=== PATIENT | male | born 1945 | race Hispanic/Latino ===

== ENCOUNTER 2019-09-23 10:02 | Inpatient (IN) | payer OTHER, MEDICARE ==
[~2019-09-23] VITALS: Ht 162.6 cm; Wt 75.7 kg
[2019-09-23 10:32] LABS: BASOPHILS % (AUTO) 0.2 % (0.0-5.0); HEMATOCRIT 35.4 % (42-54); LYMPHOCYTES % (AUTO) 10.5 % (21.0-51.0); MEAN CORPUSCULAR HEMOGLOBIN 28.2 pg (27.0-33.0); MEAN CORPUSCULAR HGB CONC 33.3 g/dL (32.0-36.0); MEAN CORPUSCULAR VOLUME 84.7 fL (79-99); MONOCYTES % (AUTO) 7.9 % (3.0-13.0); NEUTROPHILS % (AUTO) 80.2 % (40.0-77.0); PLATELET COUNT (AUTO) 241 K/uL (130-400); RED BLOOD CELL COUNT(AUTO) 4.18 MIL/uL (4.50-6.20); RED CELL DISTRIBUTION WIDTH 12.6 % (11.0-15.5); WHITE BLOOD COUNT (AUTO) 9.7 K/uL (4.8-10.8)
[2019-09-23 11:02] LABS: CREATININE 2.2 mg/dL (0.5-1.5); POTASSIUM 5.1 mmol/L (3.5-5.1)
[2019-09-23] MEDS ORDERED: ZOSYN 3.375GM+NS 50ML 50 ML IV ONE (11:12)
[2019-09-23] MEDS ORDERED: VANCOMYCIN 1GM+NS 250ML 250 ML IV SCH (11:14)
[2019-09-23 11:54] LABS: CREATINE KINASE, TOTAL 147 U/L (21-232); MYOGLOBIN 132 ng/mL (10-92); TROPONIN I < 0.04 ng/mL (0.00-0.06)
[2019-09-23 11:59] LABS: APPEARANCE,URINE CLEAR (CLEAR); BILIRUBIN,URINE NEGATIVE (NEGATIVE); COLOR,URINE YELLOW (YELLOW); GLUCOSE, URINE (UA) 100 mg/dL (NEGATIVE); KETONES,URINE NEGATIVE (NEGATIVE); LEUKOCYTE ESTERASE ,URINE NEGATIVE (NEGATIVE); NITRATE,URINE NEGATIVE (NEGATIVE); OCCULT BLOOD,URINE TRACE-LYSED (NEGATIVE); PH,URINE 5.5 (5.0-8.0); PROTEIN,URINE NEGATIVE (NEGATIVE); UROBILINOGEN,URINE 0.2 mg/dL (0.2-1.0)
[2019-09-23 12:04] LABS: INR 1.09 (0.85-1.15); PARTIAL THROMBOPLASTIN TIME 32.1 SEC (26.3-35.5); PROTHROMBIN TIME 11.7 SEC (9.6-11.6)
[2019-09-23 12:18] LABS: BACTERIA,URINE Rare /HPF (None Seen); RBC,URINE 0-1 /HPF (0-1); SQUAMOUS EPITHELIAL CELL,UR Rare /HPF (0-2)
[2019-09-23] MEDS: SODIUM CHLORIDE 0.9% 1000ML 1,000 ML IV SCH ×2 (14:16→18:05)
[2019-09-23] MEDS ORDERED: ONDANSETRON HCL 4 MG/2 ML VIAL IV PRN (14:30)
[2019-09-23] MEDS ORDERED: POTASSIUM CHLORIDE 20MEQ/100ML 100 ML IV PRN (14:30)
[2019-09-23] MEDS ORDERED: DIPHENHYDRAMINE HCL 25 MG CAPSULE PO PRN (14:30)
[2019-09-23] MEDS ORDERED: MAG HYDROX/AL HYDROX/SIMETH ES 30 ML SUSP UDCUP PO PRN (14:30)
[2019-09-23] MEDS ORDERED: ACETAMINOPHEN 325 MG TAB PO PRN (14:30)
[2019-09-23] MEDS ORDERED: GUAIFENESIN-DM 200/20 MG 10 ML PO PRN (14:30)
[2019-09-23] MEDS ORDERED: LACTULOSE 20 GM/30 ML UDCUP PO PRN (14:30)
[2019-09-23] MEDS ORDERED: MAGNESIUM 2GM PREMIX 50ML 50 ML IV PRN (14:30)
[2019-09-23] MEDS ORDERED: ZOLPIDEM TARTRATE 5 MG TAB PO PRN (14:30)
[2019-09-23] MEDS ORDERED: NITROGLYCERIN 0.4 MG SL TAB SL PRN (14:30)
[2019-09-23] MEDS ORDERED: HYDRALAZINE HCL 20 MG/ML VIAL IV PRN (14:30)
[2019-09-23] MEDS ORDERED: LIDOCAINE HCL-MPF 1% 2ML VIAL IV PRN (14:30)
[2019-09-23] MEDS ORDERED: ACETAMINOPHEN-CODEINE 300/30MG TAB ONE (15:21)
[2019-09-23 16:00] VITALS: BP 106/58
[2019-09-23] MEDS: INSULIN HUMULIN R 100 UNIT/ML 3ML SQ SCH ×2 (16:30→20:48)
[2019-09-23] MEDS ORDERED: TAMS-1 PO (17:06)
[2019-09-23] MEDS ORDERED: ATOR40TA69 PO (17:06)
[2019-09-23] MEDS ORDERED: CILO100T PO (17:06)
[2019-09-23] MEDS ORDERED: PANT40TA54 PO (17:06)
[2019-09-23] MEDS ORDERED: INVOK100TB PO (17:15)
[2019-09-23] MEDS ORDERED: MONT10TA26 PO (17:15)
[2019-09-23] MEDS ORDERED: BISA5TAB12 PO (17:15)
[2019-09-23] MEDS ORDERED: LOSA1TAB37 PO (17:15)
[2019-09-23] MEDS ORDERED: OMEP40CA13 PO (17:15)
[2019-09-23] MEDS ORDERED: CLIN150C10 PO (17:15)
[2019-09-23] MEDS ORDERED: CIPR500S5 PO (17:15)
[2019-09-23] MEDS: CEFEPIME HCL 2 GM VIAL IVP SCH (18:05)
[2019-09-23 20:03] VITALS: BP 151/62
[2019-09-23] MEDS: CILOSTAZOL 100 MG TAB PO SCH (20:50)
[2019-09-23] MEDS: FAMOTIDINE 20MG TAB 20 MG TAB PO SCH (20:50)
--- NOTE | 2019-09-23 20:56 | NUR ---
PT EDUCATED SEVERAL TIMES THAT HE CANNOT GET UP BY HIMSELF AND IS BEST IF HE DOES NOT PUT WEIGHT ON HIS RIGHT FOOT NOR GET UP AT THIS TIME SINCE DR. COVARRUBIAS DID DRESSING CHANGE AND DUE TO THE VERY HIGH FALL RISK , AND PATIENT IS PENDING SURGERY PT STATES "OK" BUT STILL TRIES TO DO WHAT HE WANTS AND GET UP, CALL LIGHT AT BED SIDE WITH TEACH BACK SUCCESSFULLY BED IS AN OLD BED, SO DOES NOT HAVE AN ALARM , WILL GET A BED ALARM THAT COMES SEPARATELY
[2019-09-23 21:34] VITALS: BP 151/62
[2019-09-23 23:28] VITALS: BP_SYST 139; BP_SYST 156; BP_DIAS 68; BP_DIAS 86
[2019-09-24] VITALS (21 sets, daily range): BP systolic 128–179; BP diastolic 50–101
[2019-09-24] MEDS: ACETAMINOPHEN-CODEINE 300/30MG TAB PO PRN (00:42)
--- NOTE | 2019-09-24 01:37 | NUR ---
pt states he already received the tetanus shot in [place]
[2019-09-24] MEDS: CEFEPIME HCL 2 GM VIAL IVP SCH ×2 (03:07→14:51)
--- NOTE | 2019-09-24 03:15 | NUR ---
pt refused iv antibiotic and iv fluids refusal form signed , in the chart
[2019-09-24 05:10] LABS: BASOPHILS % (AUTO) 0.3 % (0.0-5.0); EOSINOPHILS % (AUTO) 0.2 % (0.0-8.0); HEMATOCRIT 32.7 % (42-54); LYMPHOCYTES % (AUTO) 5.8 % (21.0-51.0); MEAN CORPUSCULAR HEMOGLOBIN 27.6 pg (27.0-33.0); MEAN CORPUSCULAR HGB CONC 32.1 g/dL (32.0-36.0); MEAN CORPUSCULAR VOLUME 85.8 fL (79-99); NEUTROPHILS % (AUTO) 87.3 % (40.0-77.0); PLATELET COUNT (AUTO) 231 K/uL (130-400); RED BLOOD CELL COUNT(AUTO) 3.81 MIL/uL (4.50-6.20); RED CELL DISTRIBUTION WIDTH 12.9 % (11.0-15.5)
[2019-09-24 05:37] LABS: ALBUMIN 2.6 g/dL (3.5-5.0); BILIRUBIN,TOTAL 0.4 mg/dL (0.2-1.0); CREATININE 1.9 mg/dL (0.5-1.5); MAGNESIUM 2.2 mg/dL (1.80-2.40); POTASSIUM 4.9 mmol/L (3.5-5.1)
[2019-09-24 06:02] LABS: CRP QUANTITATIVE 173.5 mg/L (0.00-9.0)
[2019-09-24 06:10] LABS: ERYTHROCYTE SEDIMENTATION RATE 70 MM/HR (0-20)
[2019-09-24] MEDS: INSULIN HUMULIN R 100 UNIT/ML 3ML SQ SCH ×4 (07:30→20:56)
[2019-09-24] MEDS: ENOXAPARIN SODIUM 30 MG/0.3 ML SQ SCH (08:31)
[2019-09-24] MEDS: TAMSULOSIN HCL 0.4 MG CAP.ER.24H PO SCH (09:00)
[2019-09-24] MEDS: CILOSTAZOL 100 MG TAB PO SCH ×2 (09:00→19:58)
[2019-09-24] MEDS: PANTOPRAZOLE SODIUM 40 MG TABLET.DR PO SCH (09:00)
[2019-09-24] MEDS: FAMOTIDINE 20MG TAB 20 MG TAB PO SCH ×2 (09:00→19:58)
[2019-09-24] MEDS: ATORVASTATIN CALCIUM 40 MG TABLET PO SCH (09:00)
[2019-09-24] MEDS: SODIUM CHLORIDE 0.9% 1000ML 1,000 ML IV SCH ×4 (09:37→21:26)
[2019-09-24 11:56] LABS: PROTEIN,URINE RANDOM 23.8 mg/dL (0-11.9)
[2019-09-24] MEDS ORDERED: DiphenhydrAMINE HCL 50 MG/ML VIAL IVP PRN (13:30)
[2019-09-24] MEDS ORDERED: LIDOCAINE HCL 1% 20 ML VIAL ONE (13:42)
[2019-09-24] MEDS ORDERED: BUPIVACAINE/PF 0.5% 30ML VIAL ONE (13:42)
[2019-09-24] MEDS ORDERED: PROPOFOL 10 MG/ML 20ML VIAL IV ONE (13:42)
[2019-09-24] MEDS ORDERED: LIDOCAINE PF 2% 5ML ABBOJECT ONE (13:42)
[2019-09-24] MEDS ORDERED: PHARMACY COMMUNICATION MISC SCH (13:45)
[2019-09-24 18:22] LABS: INR 1.14 (0.85-1.15); PARTIAL THROMBOPLASTIN TIME 31.5 SEC (26.3-35.5); PROTHROMBIN TIME 12.2 SEC (9.6-11.6)
[2019-09-25] VITALS (13 sets, daily range): BP systolic 103–183; BP diastolic 52–81
[2019-09-25] MEDS: CEFEPIME HCL 2 GM VIAL IVP SCH ×2 (03:27→15:20)
[2019-09-25] MEDS: SODIUM CHLORIDE 0.9% 1000ML 1,000 ML IV SCH ×6 (04:57→23:22)
[2019-09-25 06:03] LABS: HEMATOCRIT 34.4 % (42-54); MEAN CORPUSCULAR HEMOGLOBIN 28.4 pg (27.0-33.0); MEAN CORPUSCULAR HGB CONC 33.1 g/dL (32.0-36.0); MEAN CORPUSCULAR VOLUME 85.6 fL (79-99); PLATELET COUNT (AUTO) 306 K/uL (130-400); RED BLOOD CELL COUNT(AUTO) 4.02 MIL/uL (4.50-6.20); RED CELL DISTRIBUTION WIDTH 12.8 % (11.0-15.5); WHITE BLOOD COUNT (AUTO) 8.2 K/uL (4.8-10.8)
[2019-09-25 06:23] LABS: CREATININE 1.4 mg/dL (0.5-1.5); PHOSPHORUS 2.3 mg/dL (2.5-4.9); POTASSIUM 4.8 mmol/L (3.5-5.1)
[2019-09-25] MEDS: INSULIN HUMULIN R 100 UNIT/ML 3ML SQ SCH ×4 (06:35→20:50)
[2019-09-25 06:36] LABS: BAND NEUTROPHILS % (MANUAL) 1 % (0-2); BASOPHILS % (MANUAL) 1 % (0-2); LYMPHOCYTES % (MANUAL) 10 % (22-44); MAN.DIFF COMMENT-IMPRESSION MANUAL DIFFERENTIAL; MONOCYTES % (MANUAL) 4 % (2-9); PLATELET MORPHOLOGY COMMENT ADEQUATE; SEGMENTED NEUTROPHILS % 84 % (40-70)
[2019-09-25] MEDS: ENOXAPARIN SODIUM 30 MG/0.3 ML SQ SCH (07:39)
[2019-09-25] MEDS: CILOSTAZOL 100 MG TAB PO SCH ×2 (07:39→20:09)
[2019-09-25] MEDS: FAMOTIDINE 20MG TAB 20 MG TAB PO SCH ×2 (07:39→20:09)
[2019-09-25] MEDS: TAMSULOSIN HCL 0.4 MG CAP.ER.24H PO SCH ×2 (07:39→09:23)
[2019-09-25] MEDS ORDERED: COMPOUND IV MISC 1 EACH IVSOLN MISC PRN (08:30)
[2019-09-25] MEDS ORDERED: HEPARIN SODIUM 1000UNIT/ML 10ML VIAL ONE (09:22)
[2019-09-25] MEDS ORDERED: NITROGLYCERIN 2 MG/VIAL VIAL IV ONE (09:22)
[2019-09-25] MEDS: METOPROLOL TARTRATE 25 MG TAB PO SCH ×2 (09:23→20:09)
[2019-09-25] MEDS ORDERED: FENTANYL CITRATE PF 50 MCG/1 ML 2ML VIAL ONE (09:23)
[2019-09-25] MEDS ORDERED: IODIXANOL 320 MG/ML 100 ML VIAL ONE (09:23)
[2019-09-25] MEDS: ATORVASTATIN CALCIUM 40 MG TABLET PO SCH (09:23)
[2019-09-25] MEDS: PANTOPRAZOLE SODIUM 40 MG TABLET.DR PO SCH (09:23)
[2019-09-25] MEDS ORDERED: LIDOCAINE HCL 2% 20ML ONE (09:23)
[2019-09-25] MEDS ORDERED: MIDAZOLAM HCL 1 MG/ML 2ML VIAL ONE (09:23)
[2019-09-25] MEDS: IRON SUCROSE COMPLEX 100 MG in SODIUM CHLORIDE 0.9% 50 ML IV SCH (09:24)
[2019-09-25] MEDS ORDERED: TICAGRELOR 90 MG TABLET ONE (11:57)
[2019-09-25] MEDS ORDERED: ASPIRIN 325MG EC TAB 325 MG TABLET.DR PO ONE (11:57)
[2019-09-25] MEDS ORDERED: SODIUM CHLORIDE 0.9% 1000ML 1,000 ML IV SCH (12:03)
--- NOTE | 2019-09-25 12:44 | NUR ---
RECEIVED PATIENT AT 1235. INCISION TO LEFT GROIN WITH DRESSING CLEAN AND DRY, NO SIGNS OF BLEEDING OR SWELLING,LOWER EXTREMITIES WARM ,CONT WITH DRESSING AND SARBJIT WRAP TO RT FOOT TO ANKLE AREA. . INSTRUCTED PATIENT ON BEDREST AND IMPORTANCE TO NOT BEND LOWER EXTREMITY. 1:1 SITTER AT BEDSIDE
--- NOTE | 2019-09-25 13:13 | NUR ---
MAGDA PLAN PATIENT DOWN FOR PROCEDURE. ANOOP WILL CONTINUE TO FOLLOW FOR IA. Addendum: 09/25/19 at 1314 by MARY BOB RN CM Amended: Links added.
[2019-09-25] MEDS: ACETAMINOPHEN-CODEINE 300/30MG TAB PO PRN (15:28)
--- NOTE | 2019-09-25 16:23 | NUR ---
[id number] received telephone consent from Paige for IM Letter.I faxed IM Letter to [phone] and placed in chart under consent tab.
[2019-09-25] MEDS ORDERED: TICAGRELOR 90 MG TABLET PO SCH (23:30)
[2019-09-26] VITALS: BP 127/89
[2019-09-26] MEDS: DiphenhydrAMINE HCL 50 MG/ML VIAL IV PRN (02:28)
[2019-09-26] MEDS: CEFEPIME HCL 2 GM VIAL IVP SCH ×2 (02:28→15:32)
[2019-09-26 03:47] VITALS: BP 170/65
[2019-09-26 04:05] LABS: HEMATOCRIT 32.7 % (42-54); MEAN CORPUSCULAR HGB CONC 32.7 g/dL (32.0-36.0); MEAN CORPUSCULAR VOLUME 85.6 fL (79-99); RED BLOOD CELL COUNT(AUTO) 3.82 MIL/uL (4.50-6.20); WHITE BLOOD COUNT (AUTO) 7.9 K/uL (4.8-10.8)
[2019-09-26 04:25] LABS: CREATININE 1.5 mg/dL (0.5-1.5); POTASSIUM 4.3 mmol/L (3.5-5.1)
[2019-09-26] MEDS: INSULIN HUMULIN R 100 UNIT/ML 3ML SQ SCH ×4 (05:21→20:37)
[2019-09-26] MEDS: SODIUM CHLORIDE 0.9% 1000ML 1,000 ML IV SCH ×2 (05:34→09:36)
[2019-09-26 08:00] VITALS: BP 157/76
[2019-09-26] MEDS: METOPROLOL TARTRATE 25 MG TAB PO SCH (09:00)
[2019-09-26] MEDS: ACETAMINOPHEN-CODEINE 300/30MG TAB PO PRN (09:31)
[2019-09-26] MEDS: CLOPIDOGREL BISULFATE 75 MG TAB PO SCH (09:31)
[2019-09-26] MEDS: PANTOPRAZOLE SODIUM 40 MG TABLET.DR PO SCH (09:31)
[2019-09-26] MEDS: CILOSTAZOL 100 MG TAB PO SCH ×2 (09:31→20:32)
[2019-09-26] MEDS: ATORVASTATIN CALCIUM 40 MG TABLET PO SCH (09:32)
[2019-09-26] MEDS: FAMOTIDINE 20MG TAB 20 MG TAB PO SCH ×2 (09:32→20:31)
[2019-09-26] MEDS: ASPIRIN 81MG TAB.CHEW PO SCH (09:32)
[2019-09-26] MEDS: TAMSULOSIN HCL 0.4 MG CAP.ER.24H PO SCH (09:32)
[2019-09-26] MEDS ORDERED: METOPROLOL TARTRATE 25 MG TAB ONE (09:35)
[2019-09-26] MEDS: IRON SUCROSE COMPLEX 100 MG in SODIUM CHLORIDE 0.9% 50 ML IV SCH (09:38)
--- NOTE | 2019-09-26 11:39 | NUR ---
DC PLAN VISITED WITH PATIENT. PATIENT LIVES WITH SPOUSE. INDEPENDENT ABLE TO PERFORM ADL'S. PATIENT HAS NO SERVICES OR DME'S. AVAILABLE WALKER AND WHEEL CHAIR. FEELS SAFE TO RETURN HOME. PER NURSE PATIENT CONFUSED REASON FOR ONE TO ONE. EXPRESSED CONCERN REGARDING VALIDITY OF INFORMATION. CALLED SPOUSE. SAID YES WALKER AND WHEEL CHAIR ARE HERS. NO PROVIDER FOR PATIENT. WANTS HIM TO COME HOME AND WANTS TO KNOW WHEN. LET HER KNOW THAT WILL BE UP TO MD. SAID SHE WOULD LIKE A CALL FROM MD. LET NURSE AND CHRISTY BARRIENTOS FOR [facility] KNOW OF SPOUSE REQUEST. Addendum: 09/26/19 at 1142 by MARY BOB RN CM Amended: Links added.
--- NOTE | 2019-09-26 11:45 | NUR ---
IN&OUT CATHETER D/T BLADDER LLHH=932 PT C/O DYSURIA AND URINARY RETENTION. OBSERVED FREQUENCY. BLADDER PALPATED AND DISTENDED. POST YNTH=900WB BLADDER SCAN SHOWED = 865 VOLUME. REPORTED TO JEFFREY HARRISON. NEW ORDERS RECEIVED. EXPLAINED PROCEDURE FOR IN&OUT CATH. PT WAS EPISODES OF CONFUSION; VERBALIZED UNDERSTANDING. IN&OUT CATH DONE UTILIZING STERILE TECHNIQUE. 1200ML URINE OUTPUT. PT VOICES INCREASED AFTER PROCEDURE COMPLETE. WILL CONTINUE TO MONITOR.
[2019-09-26 12:00] VITALS: BP 157/80
[2019-09-26 12:54] LABS: APPEARANCE,URINE Clear (CLEAR); BILIRUBIN,URINE Negative (NEGATIVE); COLOR,URINE Yellow (YELLOW); GLUCOSE, URINE (UA) >=1000 mg/dL (NEGATIVE); KETONES,URINE Trace mg/dL (NEGATIVE); LEUKOCYTE ESTERASE ,URINE Negative (NEGATIVE); NITRATE,URINE Negative (NEGATIVE); OCCULT BLOOD,URINE Negative (NEGATIVE); PROTEIN,URINE Negative (NEGATIVE); UROBILINOGEN,URINE 0.2 mg/dL (0.2-1.0)
[2019-09-26 13:13] LABS: BACTERIA,URINE Rare /HPF (None Seen); RBC,URINE 0-1 /HPF (0-1); SQUAMOUS EPITHELIAL CELL,UR Rare /HPF (0-2); WBC,URINE 0-1 /HPF (0-1)
--- NOTE | 2019-09-26 14:44 | NUR ---
CHRISTY ATTEMPTED TO CALL PT'S TO UPDATE W PT'S STATUS HOWEVER, THERE WAS NO ANSWER. WILL CONTINUE TO FOLLOW.
[2019-09-26 16:00] VITALS: BP 148/75
--- NOTE | 2019-09-26 17:26 | NUR ---
NH=904 AFTER MEAL NO INSULIN COVERAGE DUE TO BS DONE POST MEAL. WILL CONTINUE TO MONITOR.
[2019-09-26 20:00] VITALS: BP 158/73
[2019-09-26] MEDS: METOPROLOL TARTRATE 50 MG TAB PO SCH (20:32)
[2019-09-26] MEDS: MORPHINE SULFATE 2 MG/ML 1ML SYG IV PRN (20:55)
[2019-09-27] VITALS (7 sets, daily range): BP systolic 127–156; BP diastolic 53–89
[2019-09-27] MEDS: CEFEPIME HCL 2 GM VIAL IVP SCH ×2 (03:17→16:06)
[2019-09-27] MEDS: DiphenhydrAMINE HCL 50 MG/ML VIAL IV PRN (03:17)
[2019-09-27] MEDS: MORPHINE SULFATE 2 MG/ML 1ML SYG IV PRN (03:18)
[2019-09-27 06:09] LABS: HEMATOCRIT 28.1 % (42-54); MEAN CORPUSCULAR HEMOGLOBIN 27.2 pg (27.0-33.0); MEAN CORPUSCULAR VOLUME 84.9 fL (79-99); RED BLOOD CELL COUNT(AUTO) 3.31 MIL/uL (4.50-6.20); RED CELL DISTRIBUTION WIDTH 12.9 % (11.0-15.5); WHITE BLOOD COUNT (AUTO) 8.5 K/uL (4.8-10.8)
[2019-09-27] MEDS: INSULIN HUMULIN R 100 UNIT/ML 3ML SQ SCH ×4 (06:11→20:34)
[2019-09-27 06:25] LABS: CREATININE 1.7 mg/dL (0.5-1.5); POTASSIUM 4.4 mmol/L (3.5-5.1)
[2019-09-27] MEDS: FAMOTIDINE 20MG TAB 20 MG TAB PO SCH ×2 (08:59→20:32)
[2019-09-27] MEDS: IRON SUCROSE COMPLEX 100 MG in SODIUM CHLORIDE 0.9% 50 ML IV SCH (08:59)
[2019-09-27] MEDS: PANTOPRAZOLE SODIUM 40 MG TABLET.DR PO SCH (08:59)
[2019-09-27] MEDS: ATORVASTATIN CALCIUM 40 MG TABLET PO SCH (08:59)
[2019-09-27] MEDS: ASPIRIN 81MG TAB.CHEW PO SCH (08:59)
[2019-09-27] MEDS: TAMSULOSIN HCL 0.4 MG CAP.ER.24H PO SCH (09:00)
[2019-09-27] MEDS: METOPROLOL TARTRATE 50 MG TAB PO SCH ×2 (09:00→20:32)
[2019-09-27] MEDS: CLOPIDOGREL BISULFATE 75 MG TAB PO SCH (09:00)
[2019-09-27] MEDS: CILOSTAZOL 100 MG TAB PO SCH ×2 (09:00→20:32)
[2019-09-27] MEDS ORDERED: DIPH,PERTUSS(ACELL),TET VAC/PF 0.5 ML VIAL IM SCH (14:15)
[2019-09-27] MEDS: ZOLPIDEM TARTRATE 5 MG TAB PO SCH (20:33)
[2019-09-27] MEDS ORDERED: ZOLPIDEM TARTRATE 5 MG TAB PO SCH (21:00)
[2019-09-28] MEDS: CEFEPIME HCL 2 GM VIAL IVP SCH ×2 (03:22→16:16)
[2019-09-28 04:00] VITALS: BP 128/61
[2019-09-28] MEDS: INSULIN HUMULIN R 100 UNIT/ML 3ML SQ SCH ×4 (05:37→20:34)
[2019-09-28 08:06] VITALS: BP 103/62
[2019-09-28] MEDS: FAMOTIDINE 20MG TAB 20 MG TAB PO SCH ×2 (09:00→20:26)
[2019-09-28] MEDS: IRON SUCROSE COMPLEX 100 MG in SODIUM CHLORIDE 0.9% 50 ML IV SCH (09:00)
[2019-09-28] MEDS: ATORVASTATIN CALCIUM 40 MG TABLET PO SCH (09:00)
[2019-09-28] MEDS: CLOPIDOGREL BISULFATE 75 MG TAB PO SCH (09:00)
[2019-09-28] MEDS: PANTOPRAZOLE SODIUM 40 MG TABLET.DR PO SCH (09:01)
[2019-09-28] MEDS: METOPROLOL TARTRATE 50 MG TAB PO SCH ×2 (09:01→20:26)
[2019-09-28] MEDS: ASPIRIN 81MG TAB.CHEW PO SCH (09:01)
[2019-09-28] MEDS: TAMSULOSIN HCL 0.4 MG CAP.ER.24H PO SCH (09:01)
[2019-09-28] MEDS: CILOSTAZOL 100 MG TAB PO SCH ×2 (09:01→20:26)
[2019-09-28 12:30] VITALS: BP 134/72
--- NOTE | 2019-09-28 12:44 | NUR ---
DCP/HH Order received for HH services upon discharge. Spoke w pt's spouse and obtained consent for [facility]. Referral faxed to [facility]. Received call back from Anjelica(nurse production ski repairer). She mentions that they are not able to provide services until Mon or and is asking if. Md will ok start of care to be 6/ or if family can be taught dressing changes until HH sees pt. Discussed above w primary nurse Brenda. She mentions that pts spouse was in room earlier when Dr. Gil was changing dressing and does not believe pts spouse can manage the dressing change. Primary nurse to inform attending.
[2019-09-28] MEDS ORDERED: TAMS-1 PO (13:50)
[2019-09-28 16:14] VITALS: BP 150/69
[2019-09-28] MEDS: ACETAMINOPHEN 325 MG TAB PO PRN (18:16)
[2019-09-28 19:47] VITALS: BP 170/94
[2019-09-28] MEDS: ZOLPIDEM TARTRATE 5 MG TAB PO SCH (20:26)
[2019-09-28 23:58] VITALS: BP 128/61
[2019-09-29] MEDS: CEFEPIME HCL 2 GM VIAL IVP SCH ×2 (02:49→15:24)
[2019-09-29 03:54] VITALS: BP 169/79
[2019-09-29] MEDS: INSULIN HUMULIN R 100 UNIT/ML 3ML SQ SCH ×4 (05:35→20:32)
[2019-09-29 07:53] LABS: HEMATOCRIT 29.9 % (42-54); MEAN CORPUSCULAR HGB CONC 33.1 g/dL (32.0-36.0); MEAN CORPUSCULAR VOLUME 84.7 fL (79-99); RED BLOOD CELL COUNT(AUTO) 3.53 MIL/uL (4.50-6.20)
[2019-09-29 08:00] VITALS: BP 164/80
[2019-09-29 08:07] LABS: CREATININE 1.5 mg/dL (0.5-1.5); POTASSIUM 4.2 mmol/L (3.5-5.1)
[2019-09-29] MEDS: METOPROLOL TARTRATE 50 MG TAB PO SCH ×2 (08:34→20:14)
[2019-09-29] MEDS: CILOSTAZOL 100 MG TAB PO SCH ×2 (08:34→20:14)
[2019-09-29] MEDS: ASPIRIN 81MG TAB.CHEW PO SCH (08:34)
[2019-09-29] MEDS: PANTOPRAZOLE SODIUM 40 MG TABLET.DR PO SCH (08:34)
[2019-09-29] MEDS: FAMOTIDINE 20MG TAB 20 MG TAB PO SCH ×2 (08:34→20:14)
[2019-09-29] MEDS: CLOPIDOGREL BISULFATE 75 MG TAB PO SCH (08:34)
[2019-09-29] MEDS: IRON SUCROSE COMPLEX 100 MG in SODIUM CHLORIDE 0.9% 50 ML IV SCH (08:34)
[2019-09-29] MEDS: ATORVASTATIN CALCIUM 40 MG TABLET PO SCH (08:34)
[2019-09-29] MEDS: TAMSULOSIN HCL 0.4 MG CAP.ER.24H PO SCH (08:35)
[2019-09-29 11:00] VITALS: BP 182/78
[2019-09-29] MEDS ORDERED: DEXTROSE 50%-WATER 50 ML DISP.SYRIN IV PRN (11:15)
[2019-09-29] MEDS ORDERED: GLUCAGON 1MG KIT 1 MG ML IM PRN (11:15)
[2019-09-29 16:00] VITALS: BP 145/93
[2019-09-29 19:44] VITALS: BP 145/65
[2019-09-29] MEDS: ACETAMINOPHEN-CODEINE 300/30MG TAB PO PRN (20:15)
[2019-09-29] MEDS ORDERED: INSULIN GLARGINE 100 UNITS/ML 10 ML VIAL SQ SCH (21:00)
[2019-09-29] MEDS: ZOLPIDEM TARTRATE 5 MG TAB PO SCH (21:11)
[2019-09-29 23:27] VITALS: BP 138/74
[2019-09-30 03:03] VITALS: BP 141/73
[2019-09-30] MEDS: CEFEPIME HCL 2 GM VIAL IVP SCH (03:29)
[2019-09-30] MEDS: ACETAMINOPHEN 325 MG TAB PO PRN (03:46)
[2019-09-30 05:15] LABS: MEAN CORPUSCULAR HEMOGLOBIN 28.2 pg (27.0-33.0); MEAN CORPUSCULAR HGB CONC 33.1 g/dL (32.0-36.0); RED BLOOD CELL COUNT(AUTO) 3.41 MIL/uL (4.50-6.20); RED CELL DISTRIBUTION WIDTH 13.1 % (11.0-15.5); WHITE BLOOD COUNT (AUTO) 7.7 K/uL (4.8-10.8)
[2019-09-30 05:22] LABS: CREATININE 1.6 mg/dL (0.5-1.5); POTASSIUM 3.9 mmol/L (3.5-5.1)
[2019-09-30] MEDS: INSULIN HUMULIN R 100 UNIT/ML 3ML SQ SCH ×2 (05:34→11:59)
[2019-09-30 08:31] VITALS: BP 146/74
[2019-09-30] MEDS: PANTOPRAZOLE SODIUM 40 MG TABLET.DR PO SCH (09:39)
[2019-09-30] MEDS: ASPIRIN 81MG TAB.CHEW PO SCH (09:39)
[2019-09-30] MEDS: FAMOTIDINE 20MG TAB 20 MG TAB PO SCH (09:39)
[2019-09-30] MEDS: ATORVASTATIN CALCIUM 40 MG TABLET PO SCH (09:40)
[2019-09-30] MEDS: METOPROLOL TARTRATE 50 MG TAB PO SCH (09:40)
[2019-09-30] MEDS: CLOPIDOGREL BISULFATE 75 MG TAB PO SCH (09:40)
[2019-09-30] MEDS: TAMSULOSIN HCL 0.4 MG CAP.ER.24H PO SCH (09:41)
[2019-09-30] MEDS: CILOSTAZOL 100 MG TAB PO SCH (09:41)
[2019-09-30] MEDS: IRON SUCROSE COMPLEX 100 MG in SODIUM CHLORIDE 0.9% 50 ML IV SCH (09:46)
[2019-09-30 11:37] VITALS: BP 169/83
--- NOTE | 2019-09-30 13:13 | NUR ---
DC PLAN CALLED THIS MORNING ASKING REGARDING HOME HEALTH. EXPLAINED INFO HAD BEEN SENT TO [facility] BUT THAT WEEKEND CM WAS TOLD THEY DID NOT HAVE STAFF TILL MON OR TUE FOR NEW PATIENT. NEEDED TO WAIT FOR ACCEPTANCE. CALLED [facility] THIS MORNING. SAID THEY HAD NOT RECEIVED PACKET. FAXED AND EMAILED PACKET INCLUDING CONFIRMATION FROM THIS WEEKEND THAT IT WENT THROUGH. CALLED BACK IN SAID THEY RECEIVED AND WOULD HAVE NURSE AVAILABLE FOR TOMORROW. LET NURSE KNOW. CALLED SPOUSE BACK AND TOLD HER PATIENT ACCEPTED TO [facility] [place] TODAY. NURSE NEEDS TO GET ORDERS AND MAKE PACKET. Addendum: 09/30/19 at 1318 by MARY BOB RN CM Amended: Links added.
--- NOTE | 2019-09-30 13:28 | NUR ---
D/C REPORT CALLED TO ELLY MIXON AT [facility]; I HAVE GIVEN PT AND HIS D/C INSTRUCTIONS ON AFTER CARE FOR A TOE AMPUTATON INCLUDING WOUND CARE, HEEL WALKING, POST OP SHOE, ANTIBIOTIC PERSCRIPTIONS, F/U APPOINTMENTS AND SIGNS AND SYMPTOMS TO REPORT TO MD SUCH INFECTION; IV ACCESS AND TELE BOX REMOVED. PT AND STATED UNDERSTANDING OF ALL INSTRUCTIONS.
[2019-10-26] MEDS ORDERED: MELO-106 PO (00:25)
[2019-10-26] MEDS ORDERED: ASPI-556 PO (00:25)
[2019-10-26] MEDS ORDERED: CLOP75TA14 PO (00:25)
[2019-10-26] MEDS ORDERED: TRAM50TA4 PO (00:25)
== END 2019-09-30 14:03 | disposition home health service (06) | DRG 240 ==
LOC: EDH 10:02 → EDHIP 14:16 → OBSVTOIN 14:16 → 3AH 16:06 → 3DH 19:38
PROVIDERS: ADMIT Internal Medicine Pulmonary Disease; ATTEND Internal Medicine Pulmonary Disease
PROC: 0SBM0ZZ Excision of Right Metatarsal-Phalangeal Joint, Open Approach (ICD-10-PCS; 2019-09-23)
PROC: 0Y6M0ZC Detachment at Right Foot, Partial 3rd Ray, Open Approach (ICD-10-PCS; 2019-09-24)
PROC: 047V3ZZ Dilation of Right Foot Artery, Percutaneous Approach (ICD-10-PCS; principal; 2019-09-25)
PROC: B41D1ZZ Fluoroscopy of Aorta and Bilateral Lower Extremity Arteries using Low Osmolar Contrast (ICD-10-PCS; 2019-09-25)
PROC: B41F1ZZ Fluoroscopy of Right Lower Extremity Arteries using Low Osmolar Contrast (ICD-10-PCS; 2019-09-25)
DX: E11.52 Type 2 diabetes mellitus with diabetic peripheral angiopathy with gangrene (principal); E87.1 Hypo-osmolality and hyponatremia; N17.9 Acute kidney failure, unspecified; L03.115 Cellulitis of right lower limb; I70.92 Chronic total occlusion of artery of the extremities; M86.8X7 Other osteomyelitis, ankle and foot; I96 Gangrene, not elsewhere classified; S91.331A Puncture wound without foreign body, right foot, initial encounter; E11.40 Type 2 diabetes mellitus with diabetic neuropathy, unspecified; E86.1 Hypovolemia; N18.9 Chronic kidney disease, unspecified; E11.22 Type 2 diabetes mellitus with diabetic chronic kidney disease; E11.621 Type 2 diabetes mellitus with foot ulcer; D64.9 Anemia, unspecified; L03.032 Cellulitis of left toe; E11.65 Type 2 diabetes mellitus with hyperglycemia; E11.69 Type 2 diabetes mellitus with other specified complication; E66.9 Obesity, unspecified; Z68.28 Body mass index [BMI] 28.0-28.9, adult; E78.00 Pure hypercholesterolemia, unspecified; E78.5 Hyperlipidemia, unspecified; I12.9 Hypertensive chronic kidney disease with stage 1 through stage 4 chronic kidney disease, or unspecified chronic kidney disease; I25.10 Atherosclerotic heart disease of native coronary artery without angina pectoris; I70.209 Unspecified atherosclerosis of native arteries of extremities, unspecified extremity; L97.519 Non-pressure chronic ulcer of other part of right foot with unspecified severity; Y93.89 Activity, other specified; Y92.89 Other specified places as the place of occurrence of the external cause; Y99.8 Other external cause status; Z79.02 Long term (current) use of antithrombotics/antiplatelets; Z79.4 Long term (current) use of insulin; Z83.3 Family history of diabetes mellitus
CPT/HCPCS: 36415; 37228; 71045; 73630; 73718; 75710; 75716; 76770; 80048; 80053; 81001; 82550; 82570; 82948; 83540; 83550; 83605; 83735; 83874; 84100; 84145; 84156; 84165; 84484; 85025; 85027; 85347; 85610; 85651; 85730; 86140; 87040; 87070; 87076; 87088; 87205; 90715; 93005; 93306; 93356; 93925; 93970; 97039; 99156; 99157; A4344; C1725; C1760; C1769; C1894; G0378; J0360; J0692; J1200; J1644; J1756; J1815; J2001; J2250; J2543; J2704; J3010; J3490; J7030; Q9967

== ENCOUNTER 2019-10-05 13:55 | Inpatient (IN) | payer OTHER, MEDICARE ==
[~2019-10-05] VITALS: Ht 162.6 cm; Wt 75.7 kg
[~2019-10-05 13:55] MED LIST: ATOR40TA69 PO; BISA5TAB12 PO; CILO100T PO; CIPR500S5 PO; CLIN150C10 PO; INVOK100TB PO; LOSA1TAB37 PO; MONT10TA26 PO; OMEP40CA13 PO; PANT40TA54 PO; TAMS-1 PO
[2019-10-05] MEDS ORDERED: DiphenhydrAMINE HCL 50 MG/ML VIAL IV PRN (16:30)
[2019-10-05] MEDS ORDERED: ZOLPIDEM TARTRATE 5 MG TAB PO PRN (16:30)
[2019-10-05] MEDS ORDERED: NITROGLYCERIN 0.4 MG SL TAB SL PRN (16:30)
[2019-10-05] MEDS ORDERED: LIDOCAINE HCL-MPF 1% 2ML VIAL IV PRN (16:30)
[2019-10-05] MEDS ORDERED: LACTULOSE 20 GM/30 ML UDCUP PO PRN (16:30)
[2019-10-05] MEDS ORDERED: POTASSIUM CHLORIDE 20 MEQ ERTAB PO PRN (16:30)
[2019-10-05] MEDS ORDERED: MAGNESIUM 2GM PREMIX 50ML 50 ML IV PRN (16:30)
[2019-10-05] MEDS ORDERED: ONDANSETRON HCL 4 MG/2 ML VIAL IV PRN (16:30)
[2019-10-05] MEDS ORDERED: POTASSIUM CHLORIDE 20MEQ/100ML 100 ML IV PRN (16:30)
[2019-10-05] MEDS ORDERED: GUAIFENESIN-DM 200/20 MG 10 ML PO PRN (16:30)
[2019-10-05] MEDS ORDERED: POTASSIUM CHLORIDE 10% ELIXIR 20 MEQ/15 ML UDCUP PO PRN (16:30)
[2019-10-05] MEDS ORDERED: MORPHINE SULFATE 2 MG/ML 1ML SYG IV PRN (16:30)
[2019-10-05] MEDS ORDERED: DIPHENHYDRAMINE HCL 25 MG CAPSULE PO PRN (16:30)
[2019-10-05] MEDS ORDERED: CLINDAMYCIN 600 MG/D5% WATER 50 ML IV ONE (18:42)
[2019-10-05 19:14] LABS: INR 1.03 (0.85-1.15); PARTIAL THROMBOPLASTIN TIME 28.4 SEC (26.3-35.5); PROTHROMBIN TIME 11.1 SEC (9.6-11.6)
[2019-10-05 19:17] LABS: BASOPHILS % (AUTO) 0.4 % (0.0-5.0); HEMATOCRIT 36.9 % (42-54); LYMPHOCYTES % (AUTO) 19.4 % (21.0-51.0); MEAN CORPUSCULAR HEMOGLOBIN 27.9 pg (27.0-33.0); MEAN CORPUSCULAR VOLUME 87.2 fL (79-99); NEUTROPHILS % (AUTO) 72.6 % (40.0-77.0); PLATELET COUNT (AUTO) 261 K/uL (130-400); RED BLOOD CELL COUNT(AUTO) 4.23 MIL/uL (4.50-6.20); RED CELL DISTRIBUTION WIDTH 13.6 % (11.0-15.5); WHITE BLOOD COUNT (AUTO) 7.1 K/uL (4.8-10.8)
[2019-10-05 19:22] LABS: CREATININE 1.7 mg/dL (0.5-1.5); POTASSIUM 4.9 mmol/L (3.5-5.1)
[2019-10-05 19:28] LABS: ALBUMIN 2.9 g/dL (3.5-5.0); BILIRUBIN,TOTAL 0.3 mg/dL (0.2-1.0); TOTAL PROTEIN, SERUM 7.5 g/dL (6.0-8.3)
[2019-10-05 20:50] VITALS: BP 162/81
[2019-10-05] MEDS: HEPARIN SODIUM 5000UNIT/ML 1ML VIAL SQ SCH (21:00)
[2019-10-05] MEDS: INSULIN HUMULIN R 100 UNIT/ML 3ML SQ SCH (21:00)
[2019-10-06] VITALS: BP 141/70
[2019-10-06] MEDS ORDERED: ISOS30TA11 PO (02:01)
[2019-10-06] MEDS ORDERED: ONDA-104 PO (02:01)
[2019-10-06] MEDS ORDERED: CEFU500T67 PO (02:01)
[2019-10-06] MEDS ORDERED: ACET1TAB25 PO (02:01)
[2019-10-06] MEDS ORDERED: DOCU100C33 PO (02:01)
[2019-10-06] MEDS ORDERED: METO-391 PO (02:01)
[2019-10-06] MEDS ORDERED: LEVO500T89 PO (02:01)
[2019-10-06] MEDS: CLINDAMYCIN 600 MG/D5% WATER 50 ML IV SCH ×3 (03:40→16:23)
[2019-10-06] MEDS ORDERED: SODIUM CHLORIDE 0.9% 250 ML IV ONE (03:42)
[2019-10-06 03:55] VITALS: BP 155/79
[2019-10-06 05:25] LABS: BASOPHILS % (AUTO) 0.5 % (0.0-5.0); EOSINOPHILS % (AUTO) 2.3 % (0.0-8.0); HEMATOCRIT 34.2 % (42-54); LYMPHOCYTES % (AUTO) 18.8 % (21.0-51.0); MEAN CORPUSCULAR HEMOGLOBIN 27.5 pg (27.0-33.0); MEAN CORPUSCULAR HGB CONC 32.2 g/dL (32.0-36.0); MEAN CORPUSCULAR VOLUME 85.5 fL (79-99); MONOCYTES % (AUTO) 7.5 % (3.0-13.0); NEUTROPHILS % (AUTO) 70.4 % (40.0-77.0); PLATELET COUNT (AUTO) 240 K/uL (130-400); RED CELL DISTRIBUTION WIDTH 13.5 % (11.0-15.5); WHITE BLOOD COUNT (AUTO) 6.2 K/uL (4.8-10.8)
[2019-10-06 05:29] LABS: HEMOGLOBIN A1C 8.6 % (4.0-6.0)
[2019-10-06 05:33] LABS: ALBUMIN 2.6 g/dL (3.5-5.0); BILIRUBIN,TOTAL 0.4 mg/dL (0.2-1.0); CREATININE 1.5 mg/dL (0.5-1.5); MAGNESIUM 1.6 mg/dL (1.80-2.40); POTASSIUM 4.6 mmol/L (3.5-5.1)
[2019-10-06] MEDS: INSULIN HUMULIN R 100 UNIT/ML 3ML SQ SCH ×4 (06:48→20:45)
[2019-10-06 08:00] VITALS: BP 145/77
[2019-10-06] MEDS: FAMOTIDINE 20MG TAB 20 MG TAB PO SCH (08:35)
[2019-10-06] MEDS: HEPARIN SODIUM 5000UNIT/ML 1ML VIAL SQ SCH ×2 (08:42→20:55)
[2019-10-06 11:00] VITALS: BP 139/65
--- NOTE | 2019-10-06 15:06 | NUR ---
INITIAL SW met with patient. Patient lives with spouse, Paige Loera, [phone]. He has [facility] that come daily to do wound care on left foot. No PHC. Patient able to complete ADL's independently but at times needs help due to wound on foot. Patient also drives. PCP is Dr. Sana Mccoy. Pharmacy is [facility] located on [address] [place] [address]. DCP is home. Addendum: 10/06/19 at 1509 by TERESA CORTES SS Amended: Links added. Addendum: 10/06/19 at 1801 by TERESA CORTES SS DME: [facility] wheel walker
[2019-10-06 16:00] VITALS: BP 123/90
[2019-10-06] MEDS ORDERED: DOCUSATE SODIUM 100 MG CAP PO PRN (19:00)
[2019-10-06 20:00] VITALS: BP 131/65
[2019-10-06] MEDS: CILOSTAZOL 100 MG TAB PO SCH (20:47)
[2019-10-06] MEDS: CEFEPIME HCL 2 GM VIAL IVP SCH (20:55)
[2019-10-07] VITALS (7 sets, daily range): BP systolic 112–142; BP diastolic 53–74
[2019-10-07 06:10] LABS: CREATININE 1.6 mg/dL (0.5-1.5); CRP QUANTITATIVE 12.9 mg/L (0.00-9.0); POTASSIUM 4.7 mmol/L (3.5-5.1)
[2019-10-07] MEDS: INSULIN HUMULIN R 100 UNIT/ML 3ML SQ SCH ×4 (06:12→21:03)
[2019-10-07] MEDS: CEFEPIME HCL 2 GM VIAL IVP SCH ×2 (08:24→20:54)
[2019-10-07] MEDS: ATORVASTATIN CALCIUM 40 MG TABLET PO SCH (08:25)
[2019-10-07] MEDS: FAMOTIDINE 20MG TAB 20 MG TAB PO SCH (08:25)
[2019-10-07] MEDS: TAMSULOSIN HCL 0.4 MG CAP.ER.24H PO SCH (08:25)
[2019-10-07] MEDS: CILOSTAZOL 100 MG TAB PO SCH ×2 (08:26→20:54)
[2019-10-07] MEDS: HEPARIN SODIUM 5000UNIT/ML 1ML VIAL SQ SCH ×2 (08:39→21:09)
--- NOTE | 2019-10-07 11:28 | NUR ---
DR. FARLEY ASSITANT AWARE OF CASE RE; POSS. ARTERIAL BYPASS TO IMPROVE BLOOD FLOW. STATES WILL SEE PT TODAY.
--- NOTE | 2019-10-07 15:18 | NUR ---
DR. FARLEY IN PATIENT'S ROOM POSSIBLE PROCEDURE TOMORROW. STATES WILL CALL BACK LATER TONIGHT OR IN AM FOR ORDERS.
[2019-10-07] MEDS: ACETAMINOPHEN-CODEINE 300/30MG TAB PO PRN (18:44)
[2019-10-08 03:40] VITALS: BP 130/56
[2019-10-08 05:57] LABS: MEAN CORPUSCULAR HEMOGLOBIN 27.2 pg (27.0-33.0); MEAN CORPUSCULAR HGB CONC 31.8 g/dL (32.0-36.0); MEAN CORPUSCULAR VOLUME 85.6 fL (79-99); RED BLOOD CELL COUNT(AUTO) 3.97 MIL/uL (4.50-6.20); RED CELL DISTRIBUTION WIDTH 13.5 % (11.0-15.5); WHITE BLOOD COUNT (AUTO) 5.5 K/uL (4.8-10.8)
[2019-10-08 06:17] LABS: CREATININE 2.3 mg/dL (0.5-1.5); POTASSIUM 4.9 mmol/L (3.5-5.1)
[2019-10-08] MEDS: INSULIN HUMULIN R 100 UNIT/ML 3ML SQ SCH ×4 (07:22→20:28)
[2019-10-08 07:30] VITALS: BP 156/72
[2019-10-08] MEDS: CILOSTAZOL 100 MG TAB PO SCH ×2 (08:44→20:21)
[2019-10-08] MEDS: ATORVASTATIN CALCIUM 40 MG TABLET PO SCH (08:44)
[2019-10-08] MEDS: FAMOTIDINE 20MG TAB 20 MG TAB PO SCH (08:44)
[2019-10-08] MEDS: CEFEPIME HCL 2 GM VIAL IVP SCH ×2 (08:44→20:21)
[2019-10-08] MEDS: TAMSULOSIN HCL 0.4 MG CAP.ER.24H PO SCH (08:44)
[2019-10-08] MEDS: HEPARIN SODIUM 5000UNIT/ML 1ML VIAL SQ SCH ×2 (08:44→20:28)
[2019-10-08] MEDS: ACETAMINOPHEN-CODEINE 300/30MG TAB PO PRN ×2 (08:47→15:45)
[2019-10-08 11:00] VITALS: BP 116/58
--- NOTE | 2019-10-08 14:30 | NUR ---
CHART REVIEWED, AWAITING ORDER FROM DR. FARLEY? CONSULT YESTERDAY, NO ORDERS YET. KATIA CONTINUE TO FOLLOW, DC EXPECTED TO BE TO HOME W CURRENT HOME HEALTH Addendum: 10/08/19 at 1431 by NBA COTTO RN CM Amended: Links added.
[2019-10-08 16:52] VITALS: BP 119/53
--- NOTE | 2019-10-08 18:35 | NUR ---
MARCIA SPOKE WITH MARY MAYFIELD RN REGARDING SURGERY FOR PATIENT TOMORROW. MARY KENNEDY, WILL BE IN TO SEE PATIENT CLOSE TO 10A.M. TOMORROW MORNING. ORAL KENNEDY NOTIFIED PT AND HIS . PTS SAID SHE WOULD BE IN AT 9:00 A.M. Addendum: 10/08/19 at 1837 by BRANDEE ULLOA RN THEY WILL POST ORDERS AT THE TIME.
[2019-10-08 19:00] VITALS: BP 127/56
--- NOTE | 2019-10-08 20:30 | NUR ---
MEDS SHIFT ASSESSMENT DONE, PLEASE REFER TO CHART. DUE MEDS ADMINISTERED, TOLERATED WELL. INSTRUCTED PT TO BE NPO POST MN FOR SX. PT VERBALIZES UNDERSTANDING. KEPT RESTED AND COMFORTABLE IN BED. Addendum: 10/09/19 at 0222 by ELTICIA BOJORQUEZ RN RN Amended: Links added.
--- NOTE | 2019-10-08 21:32 | NUR ---
ORDERS TURNTABLE ENGINEER NOTED NEW NEW ORDERS PLACED BY DR FARLEY. SX ORDERS FOR TOMORROW. PCP MADE AWARE OF PREP NEEDED FOR PT.
--- NOTE | 2019-10-08 22:13 | NUR ---
FAXED FAXED ORDER RECEIVED FOR SX TO RESOURCE NURSE AND CONFIRMED SX SCHEDULE IN AM.
[2019-10-08 23:00] VITALS: BP 148/61
--- NOTE | 2019-10-09 00:45 | NUR ---
BATHE PCP IN AND CLIPPED AND BATHE PT WITH HIBICLENS. PT TOLERATED ACTIVITY WELL. KEPT NPO.
[2019-10-09 03:00] VITALS: BP 103/64
--- NOTE | 2019-10-09 04:29 | NUR ---
BATHE PT BRUSHED HIS TEETH AND REMOVED HIS PARTIAL DENTURES. SECOND BATH OF HIBICLENS DONE BY PCP. PT TOLERATED ACTIVITY WELL. KEPT NPO. KEPT COMFORTABLE IN BED.
[2019-10-09 05:15] LABS: BASOPHILS % (AUTO) 0.6 % (0.0-5.0); HEMATOCRIT 32.8 % (42-54); LYMPHOCYTES % (AUTO) 20.8 % (21.0-51.0); MEAN CORPUSCULAR HEMOGLOBIN 28.1 pg (27.0-33.0); MEAN CORPUSCULAR HGB CONC 33.2 g/dL (32.0-36.0); MEAN CORPUSCULAR VOLUME 84.5 fL (79-99); MONOCYTES % (AUTO) 7.3 % (3.0-13.0); NEUTROPHILS % (AUTO) 68.9 % (40.0-77.0); PLATELET COUNT (AUTO) 183 K/uL (130-400); RED BLOOD CELL COUNT(AUTO) 3.88 MIL/uL (4.50-6.20); RED CELL DISTRIBUTION WIDTH 13.4 % (11.0-15.5); WHITE BLOOD COUNT (AUTO) 4.9 K/uL (4.8-10.8)
[2019-10-09 05:24] LABS: INR 1.02 (0.85-1.15); PARTIAL THROMBOPLASTIN TIME 30.9 SEC (26.3-35.5); POTASSIUM 5.1 mmol/L (3.5-5.1)
--- NOTE | 2019-10-09 05:25 | NUR ---
CONSENT ORAL FRANCO, ASKED TO GET CONSENT FOR PROCEDURE IN [place]. PT VERBALIZES UNDERSTANDING OF PROCEDURE AND CONSENT SIGNED, WITNESSED BY ORAL FRANCO. FORM PLACED IN CHART.
[2019-10-09] MEDS: INSULIN HUMULIN R 100 UNIT/ML 3ML SQ SCH ×4 (06:08→21:40)
[2019-10-09 07:37] VITALS: BP 138/69
[2019-10-09] MEDS: TAMSULOSIN HCL 0.4 MG CAP.ER.24H PO SCH (07:41)
[2019-10-09] MEDS: FAMOTIDINE 20MG TAB 20 MG TAB PO SCH (07:42)
[2019-10-09] MEDS: HEPARIN SODIUM 5000UNIT/ML 1ML VIAL SQ SCH (07:42)
[2019-10-09] MEDS: ATORVASTATIN CALCIUM 40 MG TABLET PO SCH (07:42)
[2019-10-09] MEDS: CILOSTAZOL 100 MG TAB PO SCH ×2 (08:40→21:39)
[2019-10-09] MEDS: CEFEPIME HCL 2 GM VIAL IVP SCH ×2 (08:41→21:39)
[2019-10-09 11:00] VITALS: BP 124/64
[2019-10-09 15:26] VITALS: BP 162/69
[2019-10-09 20:46] VITALS: BP 121/76
[2019-10-09 21:01] VITALS: BP 152/70
[2019-10-09] MEDS: MAG HYDROX/AL HYDROX/SIMETH ES 30 ML SUSP UDCUP PO PRN (21:50)
[2019-10-10 00:30] VITALS: BP 132/63
--- NOTE | 2019-10-10 04:10 | NUR ---
PATIENT UPDATE Pt transferred from 302 to 413 as per order. Pt's sx rescheduled for today 10/09 for rt fem tib bypass by Dr. Spangler. Was kept npo post mn, no chest pain, no shortness of breath. No complaints voiced out, nsr in the 70's .
[2019-10-10 04:20] VITALS: BP 125/69
[2019-10-10] MEDS: INSULIN HUMULIN R 100 UNIT/ML 3ML SQ SCH ×4 (07:30→21:36)
[2019-10-10 08:00] VITALS: BP 160/79
[2019-10-10] MEDS: HEPARIN SODIUM 5000UNIT/ML 1ML VIAL SQ SCH ×2 (08:06→20:41)
[2019-10-10] MEDS: CEFEPIME HCL 2 GM VIAL IVP SCH ×2 (08:47→20:36)
[2019-10-10] MEDS: CILOSTAZOL 100 MG TAB PO SCH ×2 (09:00→20:37)
[2019-10-10] MEDS: ATORVASTATIN CALCIUM 40 MG TABLET PO SCH (09:00)
[2019-10-10] MEDS: FAMOTIDINE 20MG TAB 20 MG TAB PO SCH (10:03)
[2019-10-10] MEDS: TAMSULOSIN HCL 0.4 MG CAP.ER.24H PO SCH (10:04)
[2019-10-10 11:48] VITALS: BP 158/78
[2019-10-10 16:00] VITALS: BP 140/67
[2019-10-10 20:00] VITALS: BP 155/66
[2019-10-10] MEDS: MAG HYDROX/AL HYDROX/SIMETH ES 30 ML SUSP UDCUP PO PRN (20:37)
[2019-10-10] MEDS ORDERED: ACETAMINOPHEN-CODEINE 300/30MG TAB ONE (21:43)
[2019-10-10] MEDS: ACETAMINOPHEN-CODEINE 300/30MG TAB PO PRN (21:47)
[2019-10-11] VITALS (43 sets, daily range): BP systolic 107–178; BP diastolic 55–103
[2019-10-11 04:26] LABS: HEMATOCRIT 32.4 % (42-54); MEAN CORPUSCULAR HEMOGLOBIN 27.3 pg (27.0-33.0); MEAN CORPUSCULAR HGB CONC 31.8 g/dL (32.0-36.0); MEAN CORPUSCULAR VOLUME 85.9 fL (79-99); RED BLOOD CELL COUNT(AUTO) 3.77 MIL/uL (4.50-6.20); RED CELL DISTRIBUTION WIDTH 13.5 % (11.0-15.5); WHITE BLOOD COUNT (AUTO) 4.7 K/uL (4.8-10.8)
[2019-10-11 04:47] LABS: CREATININE 1.9 mg/dL (0.5-1.5); POTASSIUM 5.1 mmol/L (3.5-5.1)
[2019-10-11 04:52] LABS: INR 1.06 (0.85-1.15); PARTIAL THROMBOPLASTIN TIME 27.4 SEC (26.3-35.5); PROTHROMBIN TIME 11.4 SEC (9.6-11.6)
[2019-10-11] MEDS: INSULIN HUMULIN R 100 UNIT/ML 3ML SQ SCH ×4 (06:54→21:21)
[2019-10-11] MEDS: ATORVASTATIN CALCIUM 40 MG TABLET PO SCH (07:51)
[2019-10-11] MEDS: CILOSTAZOL 100 MG TAB PO SCH ×2 (07:52→20:31)
[2019-10-11] MEDS: TAMSULOSIN HCL 0.4 MG CAP.ER.24H PO SCH (07:52)
[2019-10-11] MEDS: FAMOTIDINE 20MG TAB 20 MG TAB PO SCH (07:52)
[2019-10-11] MEDS: HEPARIN SODIUM 5000UNIT/ML 1ML VIAL SQ SCH ×2 (09:00→21:19)
[2019-10-11] MEDS: CEFEPIME HCL 2 GM VIAL IVP SCH ×2 (09:15→20:31)
--- NOTE | 2019-10-11 09:51 | NUR ---
TO OR VIA BED ACCOMPANIED BY Catherine GAGNON RN.
[2019-10-11] MEDS ORDERED: SODIUM CHLORIDE 0.9% 1000ML 1,000 ML IV ONE (10:10)
[2019-10-11] MEDS ORDERED: CEFAZOLIN SODIUM 1 GM VIAL ONE (10:18)
--- NOTE | 2019-10-11 10:25 | NUR ---
OR PT TAKEN TO OR VIA BED IN NO DITRESS. RT FOOT PODUS SHOE GIVEN TO JOSE D DRYWALL HANGER TO RETURN TO PT ONCE IN RECOVERY
[2019-10-11] MEDS ORDERED: ONDANSETRON HCL 4 MG/2 ML VIAL ONE (10:27)
[2019-10-11] MEDS ORDERED: GLYCOPYRROLATE 1 MG/5 ML SYRINGE ONE (10:27)
[2019-10-11] MEDS ORDERED: FENTANYL CITRATE PF 50 MCG/1 ML 2ML VIAL ONE (10:27)
[2019-10-11] MEDS ORDERED: DEXAMETHASONE SOD PHOSPHATE 10MG/ML 1ML VIAL ONE (10:27)
[2019-10-11] MEDS ORDERED: LIDOCAINE PF 2% 5ML ABBOJECT ONE ×2 (10:27→12:35)
[2019-10-11] MEDS ORDERED: NEOSTIGMINE 5MG/5ML SYR IV ONE (10:28)
[2019-10-11] MEDS ORDERED: PROPOFOL 10 MG/ML 20ML VIAL IV ONE (10:28)
[2019-10-11] MEDS ORDERED: ROCURONIUM 10MG/1ML SYR 10 MG/ML ML ONE (10:28)
[2019-10-11] MEDS: CEFAZOLIN SODIUM 1 GM VIAL IVP PRN ×2 (10:35→11:00)
[2019-10-11] MEDS ORDERED: PHENYLEPHRINE HCL 10 MG/ML 1ML VIAL IV ONE (12:07)
[2019-10-11] MEDS ORDERED: MEPERIDINE-PF 25 MG/ML SYG ONE ×2 (12:07)
[2019-10-11] MEDS ORDERED: OCTYL 2-CYANOACRYLATE 1 EACH TP ONE (12:12)
[2019-10-11] MEDS ORDERED: ETOMIDATE 2 MG/ML 10 ML VIAL ONE (12:35)
[2019-10-11] MEDS ORDERED: MORPHINE SULFATE 2 MG/ML 1ML SYG IVP PRN (13:30)
[2019-10-11] MEDS ORDERED: TRAMADOL HCL 50 MG TABLET PO PRN (13:30)
[2019-10-11] MEDS: MAG HYDROX/AL HYDROX/SIMETH ES 30 ML SUSP UDCUP PO PRN (17:24)
[2019-10-11] MEDS: HYDRALAZINE HCL 20 MG/ML VIAL IV PRN (18:32)
[2019-10-11] MEDS ORDERED: CEFAZOLIN SODIUM 1 GM VIAL IVP SCH (20:00)
[2019-10-11] MEDS ORDERED: METOPROLOL SUCCINATE 50 MG TAB.SR.24H PO SCH (22:00)
--- NOTE | 2019-10-11 22:00 | NUR ---
Dr Gil here earlier. Removed right foot surgical dressing, pulses per doppler, foot warm to touch. Discussed plan of care, planned surgery tomorrow with patient. Patient called his who spoke with Dr Gil. Patient consented to surgery. Scheduled for 0745 tomorrow. made aware and states will be here early in the morning. Patient signed consent.
[2019-10-12] VITALS (46 sets, daily range): BP systolic 111–167; BP diastolic 57–96
[2019-10-12 03:26] LABS: HEMATOCRIT 33.2 % (42-54); MEAN CORPUSCULAR HGB CONC 31.9 g/dL (32.0-36.0); MEAN CORPUSCULAR VOLUME 87.8 fL (79-99); RED BLOOD CELL COUNT(AUTO) 3.78 MIL/uL (4.50-6.20)
[2019-10-12 03:36] LABS: CREATININE 1.6 mg/dL (0.5-1.5); POTASSIUM 4.7 mmol/L (3.5-5.1)
[2019-10-12] MEDS: INSULIN HUMULIN R 100 UNIT/ML 3ML SQ SCH ×4 (06:10→20:54)
[2019-10-12] MEDS: CEFEPIME HCL 2 GM VIAL IVP SCH ×2 (07:43→20:50)
--- NOTE | 2019-10-12 07:55 | NUR ---
patient taken to OR at this time; at bedside; heparin sq held due to pending surgery today
[2019-10-12] MEDS ORDERED: LIDOCAINE HCL 1% MDV 50ML VIAL ONE (08:03)
[2019-10-12] MEDS ORDERED: BUPIVACAINE/PF 0.5% 30ML VIAL ONE (08:03)
[2019-10-12] MEDS: HEPARIN SODIUM 5000UNIT/ML 1ML VIAL SQ SCH ×2 (08:07→20:52)
[2019-10-12] MEDS ORDERED: MIDAZOLAM HCL 1 MG/ML 2ML VIAL ONE (08:08)
[2019-10-12] MEDS ORDERED: FENTANYL CITRATE PF 50 MCG/1 ML 2ML VIAL ONE (08:08)
[2019-10-12] MEDS ORDERED: METOPROLOL SUCCINATE 50 MG TAB.SR.24H PO SCH ×2 (09:00→10:30)
--- NOTE | 2019-10-12 10:45 | NUR ---
patient back from OR; patient awake, oriented, and following commands. Patient states no pain or discomfort at this time. is at bedside and stated Dr Gil had updated her post surgery. Patient is doing well at this time and vs remain stable. Right foot elevated on 2 pillows. No drainage or swelling noted to right LE at this time. Will continue to assess.
[2019-10-12] MEDS: CILOSTAZOL 100 MG TAB PO SCH ×2 (11:44→20:50)
[2019-10-12] MEDS: ATORVASTATIN CALCIUM 40 MG TABLET PO SCH (11:44)
[2019-10-12] MEDS: FAMOTIDINE 20MG TAB 20 MG TAB PO SCH (11:44)
[2019-10-12] MEDS: TAMSULOSIN HCL 0.4 MG CAP.ER.24H PO SCH (11:44)
--- NOTE | 2019-10-12 17:15 | NUR ---
Transfer PATIENT TRANSFERRED TO ROOM 432 IN STABLE CONDITION; AT BEDSIDE; ORAL XIE GIVEN BEDSIDE REPORT.
[2019-10-12] MEDS: TRAMADOL HCL 50 MG TABLET PO PRN (18:27)
[2019-10-13] VITALS (7 sets, daily range): BP systolic 124–163; BP diastolic 57–87
[2019-10-13] MEDS: HYDROMORPHONE HCL 0.5 MG/0.5 ML ML IVP PRN ×3 (00:24→18:19)
[2019-10-13] MEDS: INSULIN HUMULIN R 100 UNIT/ML 3ML SQ SCH ×4 (06:36→21:25)
[2019-10-13 08:10] LABS: HEMATOCRIT 29.3 % (42-54); MEAN CORPUSCULAR HGB CONC 32.4 g/dL (32.0-36.0); MEAN CORPUSCULAR VOLUME 86.4 fL (79-99); RED BLOOD CELL COUNT(AUTO) 3.39 MIL/uL (4.50-6.20); RED CELL DISTRIBUTION WIDTH 13.6 % (11.0-15.5); WHITE BLOOD COUNT (AUTO) 7.5 K/uL (4.8-10.8)
[2019-10-13 08:19] LABS: CREATININE 1.4 mg/dL (0.5-1.5); POTASSIUM 4.4 mmol/L (3.5-5.1)
[2019-10-13] MEDS: CILOSTAZOL 100 MG TAB PO SCH ×2 (09:13→21:10)
[2019-10-13] MEDS: TAMSULOSIN HCL 0.4 MG CAP.ER.24H PO SCH (09:14)
[2019-10-13] MEDS: FAMOTIDINE 20MG TAB 20 MG TAB PO SCH (09:14)
[2019-10-13] MEDS: ASPIRIN 325 MG TABLET PO SCH (09:14)
[2019-10-13] MEDS: METOPROLOL SUCCINATE 50 MG TAB.SR.24H PO SCH (09:14)
[2019-10-13] MEDS: CEFEPIME HCL 2 GM VIAL IVP SCH ×2 (09:15→21:10)
[2019-10-13] MEDS: HEPARIN SODIUM 5000UNIT/ML 1ML VIAL SQ SCH ×2 (09:26→21:24)
[2019-10-13] MEDS ORDERED: ACETAMINOPHEN ELIXIR 650 MG/20.3 ML UDCUP PEG PRN (12:00)
[2019-10-13] MEDS: ACETAMINOPHEN 325 MG TAB PO PRN ×2 (12:39→12:49)
[2019-10-13] MEDS: TRAMADOL HCL 50 MG TABLET PO PRN (12:45)
--- NOTE | 2019-10-13 15:18 | NUR ---
DCP/SNF referral Spoke w pt and spouse this afternoon regarding Md order/recommendation for SNF @ DC for Rehab. Both pt and spouse voice that they do not want to consider SNF @ this time dt current COVID concerns. Per pt's spouse she plans to take pt home at dc and assist him as she is able. Pt mentions that he will poss need a walker. Informed them CM will update primary nurse and f/u w attending.
[2019-10-13] MEDS: ATORVASTATIN CALCIUM 40 MG TABLET PO SCH (21:10)
[2019-10-14] MEDS: HYDROMORPHONE HCL 0.5 MG/0.5 ML ML IVP PRN ×3 (03:31→16:32)
[2019-10-14 05:19] VITALS: BP 129/68
[2019-10-14 05:33] LABS: MEAN CORPUSCULAR HEMOGLOBIN 28.7 pg (27.0-33.0); MEAN CORPUSCULAR HGB CONC 32.7 g/dL (32.0-36.0); MEAN CORPUSCULAR VOLUME 87.7 fL (79-99); RED BLOOD CELL COUNT(AUTO) 3.42 MIL/uL (4.50-6.20); RED CELL DISTRIBUTION WIDTH 13.6 % (11.0-15.5); WHITE BLOOD COUNT (AUTO) 8.5 K/uL (4.8-10.8)
[2019-10-14] MEDS: INSULIN HUMULIN R 100 UNIT/ML 3ML SQ SCH ×4 (05:50→21:15)
[2019-10-14 05:54] LABS: CREATININE 1.5 mg/dL (0.5-1.5); POTASSIUM 4.9 mmol/L (3.5-5.1)
[2019-10-14 08:10] VITALS: BP 119/77
[2019-10-14] MEDS: CILOSTAZOL 100 MG TAB PO SCH ×2 (09:45→21:07)
[2019-10-14] MEDS: ASPIRIN 325 MG TABLET PO SCH (09:45)
[2019-10-14] MEDS: FAMOTIDINE 20MG TAB 20 MG TAB PO SCH (09:45)
[2019-10-14] MEDS: METOPROLOL SUCCINATE 50 MG TAB.SR.24H PO SCH (09:45)
[2019-10-14] MEDS: TAMSULOSIN HCL 0.4 MG CAP.ER.24H PO SCH (09:45)
[2019-10-14] MEDS: CEFEPIME HCL 2 GM VIAL IVP SCH (09:45)
[2019-10-14] MEDS: HEPARIN SODIUM 5000UNIT/ML 1ML VIAL SQ SCH ×2 (09:59→21:15)
[2019-10-14 12:17] VITALS: BP 133/75
[2019-10-14] MEDS: TRAMADOL HCL 50 MG TABLET PO PRN ×2 (14:05→22:09)
[2019-10-14 16:57] VITALS: BP 133/46
[2019-10-14 19:00] VITALS: BP 156/73
[2019-10-14] MEDS: ATORVASTATIN CALCIUM 40 MG TABLET PO SCH (21:07)
--- NOTE | 2019-10-14 21:15 | NUR ---
MEDS SHIFT ASSESSMENT DONE, PLEASE REFER TO CHART. DUE MEDS ADMINISTERED, TOLERATED WELL. CALL LIGHT WITHIN REACH. WILL MONITOR PT. FAMILY AT BEDSIDE. Addendum: 10/15/19 at 0029 by LETICIA BOJORQUEZ RN RN Amended: Links added.
[2019-10-15] VITALS: BP 152/74
--- NOTE | 2019-10-15 02:00 | NUR ---
ROUNDS PT RESTING WELL, FAIRLY ASLEEP. NO DISTRESS NOTED. KEPT COMFORTABLE AND UNDISTURBED. CALL LIGHT WITHIN REACH. FAMILY ASLEEP AT BEDSIDE.
[2019-10-15] MEDS: HYDRALAZINE HCL 20 MG/ML VIAL IV PRN (03:56)
[2019-10-15 04:00] VITALS: BP 163/80
--- NOTE | 2019-10-15 04:00 | NUR ---
BP PT IS RESTING WELL. NO DISTRESS NOTED. PCP REPORTED ZZ=[phone], QP=[phone]. MEDICATED WITH HYDRALAZINE IV. WILL RE-ASSESS PT. Addendum: 10/15/19 at 0406 by LETICIA BOJORQUEZ RN RN Amended: Links added.
[2019-10-15 04:49] VITALS: BP 139/64
[2019-10-15] MEDS: TRAMADOL HCL 50 MG TABLET PO PRN ×2 (04:54→12:03)
--- NOTE | 2019-10-15 04:54 | NUR ---
RE-CHECK SENIOR LIVING SALES COUNSELOR IN TO DRAW BLOOD. BP [id number]/64. PT CLAIMS OF RT FOOT PAINS. MEDICATED WITH TRAMADOL PO. KEPT COMFORTABLE IN BED. WILL RE-ASSESS PT.
[2019-10-15 05:09] LABS: HEMATOCRIT 27.7 % (42-54); MEAN CORPUSCULAR HEMOGLOBIN 28.5 pg (27.0-33.0); MEAN CORPUSCULAR HGB CONC 32.9 g/dL (32.0-36.0); MEAN CORPUSCULAR VOLUME 86.8 fL (79-99); RED BLOOD CELL COUNT(AUTO) 3.19 MIL/uL (4.50-6.20); RED CELL DISTRIBUTION WIDTH 13.8 % (11.0-15.5); WHITE BLOOD COUNT (AUTO) 6.1 K/uL (4.8-10.8)
[2019-10-15 05:24] LABS: CREATININE 1.5 mg/dL (0.5-1.5); POTASSIUM 4.4 mmol/L (3.5-5.1)
[2019-10-15] MEDS: INSULIN HUMULIN R 100 UNIT/ML 3ML SQ SCH ×2 (06:15→12:06)
--- NOTE | 2019-10-15 06:45 | NUR ---
MD DR COVARRUBIAS IN TO SEE PT. WOUND DRESSING CHANGED, ABELINO DRAINS REMOVED AND BETADINE CAST APPLIED. PT TOLERATED DRESSING CHANGE WELL. KEPT RT FOOT ELEVATED WITH PILLOWS IN BED. FOR MORE CARE.
[2019-10-15 08:18] VITALS: BP 131/71
[2019-10-15] MEDS: FAMOTIDINE 20MG TAB 20 MG TAB PO SCH (09:19)
[2019-10-15] MEDS: METOPROLOL SUCCINATE 50 MG TAB.SR.24H PO SCH (09:20)
[2019-10-15] MEDS: ASPIRIN 325 MG TABLET PO SCH (09:20)
--- NOTE | 2019-10-15 09:20 | NUR ---
DC PLAN VISITED WITH PATIENT. SPOKE TO AND SPOUSE. SPOKE TO PT AND TO CHRISTY. REFUSED [facility] AND SNF. OFFERED AGAIN. SAID WANTS TO GO HOME. OKAY TO RETURN TO [facility]. CHRISTY WROTE SCRIPT FOR WALKER. HENOK CALLED DR. COVARRUBIAS FOR WOUND CARE RECOMMENDATIONS AND FOR ABX. NO ABX NEEDED. WOUND CARE DAILY. CM WILL SEND UPDATED ORDERS AND WALKER SCRIPT TO [facility]. Addendum: 10/15/19 at 0925 by MARY BOB RN CM Amended: Links added.
[2019-10-15] MEDS: TAMSULOSIN HCL 0.4 MG CAP.ER.24H PO SCH (09:21)
[2019-10-15] MEDS: CILOSTAZOL 100 MG TAB PO SCH (09:21)
[2019-10-15] MEDS: HEPARIN SODIUM 5000UNIT/ML 1ML VIAL SQ SCH (09:30)
--- NOTE | 2019-10-15 10:00 | NUR ---
CM Note: HCD pending approval for standard walker no wheels CM obtained SHAHBAZ for HCD. Pt currently active w/HH, has reacceptance. Faxed order, clinicals, PT to [facility] for standard walker no wheels, confirmation received. Pt pending approval and delivery. Primary nurse and pt spouse aware pt can borrow hospital standard walker, spouse to return to hospital once own DME delivered at pt's house. Pt safe to DC once MD clear. Primary nurse aware. CM to cont to follow up.
[2019-10-15] MEDS ORDERED: INSULIN GLARGINE 100 UNITS/ML 10 ML VIAL SQ SCH ×2 (12:15→21:00)
[2019-10-15 12:31] VITALS: BP 130/74
--- NOTE | 2019-10-15 13:14 | NUR ---
CM Note: HCD approval pending to deliver wkr CM spoke to Courtney randle/ENED[place], pt has approval. Will deliver standard walker no wheels at pt's house. Spouse to return hospital borrowed wkr once DME delivered. Primary nurse aware. CM to cont to follow up.
[2019-10-15] MEDS ORDERED: CLIN300C9 PO (13:23)
--- NOTE | 2019-10-15 14:07 | NUR ---
DISCHARGE DISCHARGE INSTRUCTIONS GIVEN TO PATIENT AND HIS , VERBALIZED UNDERSTANDING. REPORT CALLED IN TO [facility], SPOKE TO ELLY MIXON. PRESCRIPTIONS SENT TO [facility]. IV DISCONTINUED. TELEPAK REMOVED. PATIENT HAS FOLLOW UP APPOINTMENTS WITH DR COVARRUBIAS AND DR FARLEY.
[2019-10-15] MEDS ORDERED: ISOSORBIDE DINITRATE 20 MG TABLET PO SCH (21:00)
[2019-10-16] MEDS ORDERED: PANTOPRAZOLE SODIUM 40 MG TABLET.DR PO SCH (09:00)
[2019-10-16] MEDS ORDERED: MONTELUKAST SODIUM 10 MG TAB PO SCH (09:00)
[2019-10-16] MEDS ORDERED: LOSARTAN/HYDROCHLOROTHIAZIDE 50-12.5MG TABLET PO SCH (09:00)
[2019-10-26] MEDS ORDERED: TRAM50TA4 PO (00:25)
[2019-10-26] MEDS ORDERED: MELO-106 PO (00:25)
[2019-10-26] MEDS ORDERED: CLOP75TA14 PO (00:25)
[2019-10-26] MEDS ORDERED: ASPI-556 PO (00:25)
== END 2019-10-15 14:00 | disposition home health service (06) | DRG 240 ==
LOC: EDH 13:55 → EDHIP 16:30 → OBSVTOIN 16:30 → 3AH 20:33 → 4CH 10-09 20:13 → 2BH 10-11 14:20 → 4AH 10-12 17:22
PROVIDERS: ADMIT Internal Medicine Critical Care Medicine; ATTEND Internal Medicine Critical Care Medicine
PROC: 04CR0ZZ Extirpation of Matter from Right Posterior Tibial Artery, Open Approach (ICD-10-PCS; principal; 2019-10-05)
PROC: 041K0KN Bypass Right Femoral Artery to Posterior Tibial Artery with Nonautologous Tissue Substitute, Open Approach (ICD-10-PCS; 2019-10-05)
PROC: 0Y6M0ZD Detachment at Right Foot, Partial 4th Ray, Open Approach (ICD-10-PCS; 2019-10-12)
DX: E11.52 Type 2 diabetes mellitus with diabetic peripheral angiopathy with gangrene (principal); N17.9 Acute kidney failure, unspecified; E11.40 Type 2 diabetes mellitus with diabetic neuropathy, unspecified; L03.032 Cellulitis of left toe; E11.621 Type 2 diabetes mellitus with foot ulcer; N18.9 Chronic kidney disease, unspecified; E11.22 Type 2 diabetes mellitus with diabetic chronic kidney disease; I12.9 Hypertensive chronic kidney disease with stage 1 through stage 4 chronic kidney disease, or unspecified chronic kidney disease; D64.9 Anemia, unspecified; I99.8 Other disorder of circulatory system; L97.519 Non-pressure chronic ulcer of other part of right foot with unspecified severity; E78.5 Hyperlipidemia, unspecified; I25.10 Atherosclerotic heart disease of native coronary artery without angina pectoris; E78.00 Pure hypercholesterolemia, unspecified; Z79.02 Long term (current) use of antithrombotics/antiplatelets; Z79.82 Long term (current) use of aspirin; Z79.899 Other long term (current) drug therapy; E86.1 Hypovolemia; Y83.8 Other surgical procedures as the cause of abnormal reaction of the patient, or of later complication, without mention of misadventure at the time of the procedure; Y92.89 Other specified places as the place of occurrence of the external cause
CPT/HCPCS: 36415; 71045; 80048; 80053; 82948; 83036; 83690; 83735; 84100; 85025; 85027; 85610; 85651; 85730; 86140; 86850; 86900; 86901; 87070; 87076; 87205; 88305; 88311; 97039; A4344; G0378; J0360; J0690; J0692; J1100; J1170; J1644; J1815; J2001; J2175; J2250; J2370; J2405; J2704; J2710; J3010; J3475; J3490; J7030; J7040; J7050

== ENCOUNTER 2019-10-25 11:08 | Inpatient (IN) | payer OTHER, MEDICARE ==
[~2019-10-25] VITALS: Ht 162.6 cm; Wt 71.0 kg
[2019-10-25] MEDS ORDERED: ONDANSETRON HCL 4 MG/2 ML VIAL IVP PRN (15:45)
[2019-10-25] MEDS ORDERED: ACETAMINOPHEN 325 MG TAB PO PRN (15:45)
[2019-10-25] MEDS: SODIUM CHLORIDE 0.9% 1000ML 1,000 ML IV SCH (15:45)
[2019-10-25] MEDS ORDERED: HYDRALAZINE HCL 20 MG/ML VIAL IV PRN (15:45)
[2019-10-25] MEDS ORDERED: LOPERAMIDE HCL 2 MG CAP PO PRN (15:45)
[2019-10-25] MEDS ORDERED: ZOLPIDEM TARTRATE 5 MG TAB PO PRN (15:45)
[2019-10-25] MEDS ORDERED: LABETALOL 20 MG/4 ML DISP.SYRIN IV PRN (15:45)
[2019-10-25] MEDS ORDERED: POTASSIUM CHLORIDE 10% ELIXIR 20 MEQ/15 ML UDCUP PO PRN (16:00)
[2019-10-25] MEDS ORDERED: DEXTROSE 50%-WATER 50 ML DISP.SYRIN IV PRN (16:00)
[2019-10-25] MEDS ORDERED: POTASSIUM CHLORIDE 20 MEQ ERTAB PO PRN (16:00)
[2019-10-25] MEDS ORDERED: POTASSIUM CHLORIDE 20MEQ/100ML 100 ML IV PRN (16:00)
[2019-10-25] MEDS ORDERED: LIDOCAINE HCL-MPF 1% 2ML VIAL IV PRN (16:00)
[2019-10-25] MEDS ORDERED: GLUCAGON 1MG KIT 1 MG ML IM PRN (16:00)
--- NOTE | 2019-10-25 16:01 | NUR ---
pt. still in ER,awaiting for patient to be transferred to regular medical floor in order to be able to initiate skilled Physical Therapy evaluation as ordered by Brissa Carter,[facility] Addendum: 10/25/19 at 1603 by FANTA URBANO, PT PT Amended: Links added.
[2019-10-25] MEDS ORDERED: HYDRALAZINE HCL 20 MG/ML VIAL ONE (19:50)
[2019-10-25] MEDS: INSULIN HUMULIN R 100 UNIT/ML 3ML SQ SCH (21:00)
[2019-10-25 23:00] VITALS: BP 151/68; PULSE 107; RESP 20; TEMP 98.7
--- NOTE | 2019-10-25 23:30 | NUR ---
ADMISSION NOTE ADMIT TO ROOM 323 VIA STRETCHER FROM ER. PATIENT AWAKE, ALERT,OX2 , FORGETFUL, PATIENTS AT BEDSIDE, LEFT HAND WITH 20 GAUGE CATHETER WITH IVF INFUSING WELL, RIGHT FOOT TMA NECROTIC AND DISCOLORED, TEACH PATIENT AND PATIENTS PLAN OF CARE AND EXPECTED OUTCOME, BOTH VERBALIZE UNDERSTANDING VIA TEACH BACK
[2019-10-26] MEDS: HYDROMORPHONE HCL 0.5 MG/0.5 ML ML IVP PRN ×3 (00:08→23:08)
[2019-10-26] MEDS: CILOSTAZOL 100 MG TAB PO SCH ×3 (00:13→19:46)
[2019-10-26] MEDS: ISOSORBIDE DINITRATE 10 MG TABLET PO SCH ×3 (00:13→19:46)
[2019-10-26 04:00] VITALS: BP 161/73; PULSE 104; RESP 18; TEMP 98.8
[2019-10-26] MEDS: SODIUM CHLORIDE 0.9% 1000ML 1,000 ML IV SCH ×2 (04:38→19:24)
[2019-10-26] MEDS: INSULIN HUMULIN R 100 UNIT/ML 3ML SQ SCH ×4 (06:14→20:25)
[2019-10-26 08:33] VITALS: BP 164/74; PULSE 101; RESP 19; TEMP 97.9
[2019-10-26] MEDS ORDERED: LOSARTAN/HYDROCHLOROTHIAZIDE 50-12.5MG TABLET PO SCH (09:00)
[2019-10-26 11:12] VITALS: BP 135/72; PULSE 105; RESP 20; TEMP 98.2
[2019-10-26] MEDS: TAMSULOSIN HCL 0.4 MG CAP.ER.24H PO SCH (11:34)
[2019-10-26] MEDS: PANTOPRAZOLE SODIUM 40 MG TABLET.DR PO SCH (11:35)
[2019-10-26] MEDS: ATORVASTATIN CALCIUM 40 MG TABLET PO SCH (11:35)
[2019-10-26] MEDS: MONTELUKAST SODIUM 10 MG TAB PO SCH (11:36)
[2019-10-26] MEDS: METOPROLOL SUCCINATE 50 MG TAB.SR.24H PO SCH (11:36)
[2019-10-26] MEDS: ASPIRIN 81MG TAB.CHEW PO SCH (11:36)
[2019-10-26] MEDS: HEPARIN SODIUM 5000UNIT/ML 1ML VIAL SQ SCH (11:41)
--- NOTE | 2019-10-26 12:58 | NUR ---
INITIAL SW spoke with patient's spouse, Paige Loera, [phone] due to patient being confused. Patient lives with spouse. He has [facility] daily for wound care. No PHC. DME: standard walker, shower chair, glucometer (uses insulin). Patient needs help with ADL's and does not drive. Spouse assists with transportation. PCP is Dr. Johanna Mccoy. Pharmacy is [facility] located on [address] [place] [address]. Patient's spouse is requesting prescription for light weight wheelchair and BPM. CM notified. Spouse also encouraged to notify MD when MD makes rounds. stated she would mention. Addendum: 10/26/19 at 1302 by TERESA CORTES SS Amended: Links added.
[2019-10-26] MEDS: CEFEPIME HCL 1 GM VIAL IVP SCH (15:00)
[2019-10-26] MEDS: METRONIDAZOLE 500 MG TABLET PO SCH ×2 (15:00→23:02)
[2019-10-26] MEDS ORDERED: PHARMACY COMMUNICATION MISC SCH (15:00)
[2019-10-26] MEDS ORDERED: VANCOMYCIN PROTOCOL PER PHARMACY IV SCH (15:30)
[2019-10-26] MEDS: VANCOMYCIN 1GM+NS 250ML 250 ML IV SCH (16:00)
[2019-10-26 16:18] VITALS: BP 131/72; PULSE 107; RESP 20; TEMP 97.6
[2019-10-26 19:19] VITALS: BP 142/63; PULSE 102; RESP 18; TEMP 98.2
--- NOTE | 2019-10-26 19:25 | NUR ---
CONSULT DR. KARIMI TO SEE AND EXAMEN PATIENT WITH ORDERS
[2019-10-26] MEDS: DOCUSATE SODIUM 100 MG CAP PO PRN (19:49)
[2019-10-26 23:03] VITALS: BP 139/71; PULSE 104; RESP 18; TEMP 97.9
[2019-10-27] MEDS: HYDROMORPHONE HCL 0.5 MG/0.5 ML ML IVP PRN ×3 (02:55→20:07)
[2019-10-27] MEDS: CEFEPIME HCL 1 GM VIAL IVP SCH ×2 (02:59→17:29)
[2019-10-27 03:03] VITALS: BP 141/70; PULSE 94; RESP 18; TEMP 98.4
[2019-10-27] MEDS: INSULIN HUMULIN R 100 UNIT/ML 3ML SQ SCH ×4 (05:52→20:08)
[2019-10-27] MEDS: METRONIDAZOLE 500 MG TABLET PO SCH ×3 (05:57→22:39)
--- NOTE | 2019-10-27 07:30 | NUR ---
note aaox3. c/o pain to right lower extremity. HE WAS MEDICATED FOR PAIN AT 0300 SO I AM PAGING PRIMARY TEAM FOR PRN ORDERS SINCE HE ONLY HAS DILAUDID Q6H PRN. DR KARIMI CAME IN THE AFTERNOON YESTERDAY AND HE IS ASKING FOR RECOMMENDATIONS FROM DR BAXTER CARDIOVASCULAR SURGEON WHO PERFORMED PATIENT'S RIGHT FEMORAL POPLITEAL BYPASS SURGERY A FEW WEEKS AGO. PATIENT CAME IN 2 DAYS AGO FOR ISCHEMIC STUMP RIGHT TMA. WAS SENT FROM DR COVARRUBIAS'S OFFICE WHEN HE WENT FOR FOLLOW UP OF RIGHT TMA. THERE IS REDDISH DISCOLORATION TO DORSAL AREA OF THE RIGHT TMA STUMP AND INNER DISTAL ASPECT IS TURNING BLACK WITH NO BLENCHING NOTED TO THIS LAST AREA. THERE IS BLENCHING NOTED TO REDDISH AREAS THOUGH. AND THERE IS FAINT PALPABLE DORSALIS PEDIS PULSE RLE. WILL CONFIRM WITH DOPPLER.
[2019-10-27] MEDS: SODIUM CHLORIDE 0.9% 1000ML 1,000 ML IV SCH ×2 (07:45→21:32)
[2019-10-27 08:00] VITALS: BP 165/70; PULSE 92; RESP 20; TEMP 98.2
[2019-10-27] MEDS: ISOSORBIDE DINITRATE 10 MG TABLET PO SCH ×2 (08:16→20:07)
[2019-10-27] MEDS: ATORVASTATIN CALCIUM 40 MG TABLET PO SCH (08:16)
[2019-10-27] MEDS: TAMSULOSIN HCL 0.4 MG CAP.ER.24H PO SCH (08:16)
[2019-10-27] MEDS: PANTOPRAZOLE SODIUM 40 MG TABLET.DR PO SCH (08:17)
[2019-10-27] MEDS: MONTELUKAST SODIUM 10 MG TAB PO SCH (08:17)
[2019-10-27] MEDS: METOPROLOL SUCCINATE 50 MG TAB.SR.24H PO SCH (08:17)
[2019-10-27] MEDS: CILOSTAZOL 100 MG TAB PO SCH ×2 (08:17→20:07)
[2019-10-27] MEDS: ASPIRIN 81MG TAB.CHEW PO SCH (08:17)
[2019-10-27] MEDS: TRAMADOL HCL 50 MG TABLET PO PRN ×2 (08:18→20:47)
[2019-10-27] MEDS: HEPARIN SODIUM 5000UNIT/ML 1ML VIAL SQ SCH (08:23)
[2019-10-27] MEDS: GABAPENTIN 300 MG CAPSULE PO SCH ×3 (10:41→20:46)
[2019-10-27 11:22] VITALS: BP 153/76; PULSE 93; RESP 20; TEMP 97.8
--- NOTE | 2019-10-27 13:04 | NUR ---
Family refused pt is pending surgical consult. Addendum: 10/27/19 at 1304 by AMBROSIO WEST, PT PT Amended: Links added.
--- NOTE | 2019-10-27 17:11 | NUR ---
NOTE SPOKE TO DR BAXTER AND RELAYED RESULTS FROM RLE ARTERIAL DOPPLERS HE ORDERED EARLIER THIS AM. NO ORDERS GIVEN.
[2019-10-27 17:13] VITALS: BP 154/80; PULSE 91; RESP 17; TEMP 97.6
[2019-10-27] MEDS: VANCOMYCIN 1GM+NS 250ML 250 ML IV SCH (17:28)
--- NOTE | 2019-10-27 18:00 | NUR ---
NOTE PATIENT WAS STARTED ON GABAPENTIN PER DR BAXTER ORDERS AND HE REPORTS PAIN IS BETTER CONTROLLED. AFTER TALKING TO PATIENT FOR A WHILE WHAT HE SEEMS TO BE DESCRIBING IS MORE PHANTOM PAIN THAN ANYTHING ELSE. I PALPATED RIGHT PEDAL PULSES AND FOUND FAINT DP COULD NOT FIND POSTERIOR TIBIAL BUT WAS ABLE TO FIRST CONFIRM DP WITH DOPPLER AND FIND PT WELL. MARKED THE SPOTS WHERE DOPPLER FOUND THEM. SPOKE TO AND PATIENT AND EXPLAINED TO THEM ABOUT PHANTOM PAIN AND BOTH UNDERSTAND. THEY HAVE SOME QUESTIONS FOR DR BAXTER AND KARIMI FOR TOMORROW.
[2019-10-27 19:11] VITALS: BP 157/77; PULSE 91; RESP 18; TEMP 99
[2019-10-27 23:09] VITALS: BP 145/69; PULSE 86; RESP 18; TEMP 99.1
[2019-10-28] MEDS: HYDROMORPHONE HCL 0.5 MG/0.5 ML ML IVP PRN ×3 (01:01→19:35)
[2019-10-28] MEDS: CEFEPIME HCL 1 GM VIAL IVP SCH ×2 (03:08→15:35)
[2019-10-28 03:14] VITALS: BP 162/75; PULSE 89; RESP 18; TEMP 98.7
[2019-10-28] MEDS: GABAPENTIN 300 MG CAPSULE PO SCH ×3 (06:21→19:34)
[2019-10-28] MEDS: METRONIDAZOLE 500 MG TABLET PO SCH ×3 (06:21→23:09)
[2019-10-28] MEDS: INSULIN HUMULIN R 100 UNIT/ML 3ML SQ SCH ×4 (06:30→21:00)
[2019-10-28 07:30] VITALS: BP 158/86; PULSE 88; RESP 18; TEMP 98.3
[2019-10-28] MEDS: HEPARIN SODIUM 5000UNIT/ML 1ML VIAL SQ SCH (09:06)
[2019-10-28] MEDS: ASPIRIN 81MG TAB.CHEW PO SCH (09:08)
[2019-10-28] MEDS: TAMSULOSIN HCL 0.4 MG CAP.ER.24H PO SCH (09:08)
[2019-10-28] MEDS: MONTELUKAST SODIUM 10 MG TAB PO SCH (09:09)
[2019-10-28] MEDS: PANTOPRAZOLE SODIUM 40 MG TABLET.DR PO SCH (09:09)
[2019-10-28] MEDS: METOPROLOL SUCCINATE 50 MG TAB.SR.24H PO SCH (09:09)
[2019-10-28] MEDS: ISOSORBIDE DINITRATE 10 MG TABLET PO SCH ×2 (09:09→19:35)
[2019-10-28] MEDS: CILOSTAZOL 100 MG TAB PO SCH ×2 (09:10→19:34)
[2019-10-28] MEDS: LACTULOSE 20 GM/30 ML UDCUP PO PRN (09:21)
[2019-10-28 11:00] VITALS: BP 145/74; PULSE 86; RESP 18; TEMP 98.6
--- NOTE | 2019-10-28 14:40 | NUR ---
RD NOTIFICATION Pt admitted with R-TMA. Pt is s/p Transmetatarsal amputation, pending eval for possible BKA as per EMR. Pt tolerating Heart healthy diet order with no report of GI distress and improved PO intake. Recommend add 75gm CC diet modification RD to continue to monitor. Please notify as additional nutrition concerns arise. Thank you. Addendum: 10/28/19 at [address] Amended: Links added.
[2019-10-28] MEDS: SODIUM CHLORIDE 0.9% 1000ML 1,000 ML IV SCH (15:35)
[2019-10-28 16:00] VITALS: BP 157/87; PULSE 91; RESP 18; TEMP 98.3
[2019-10-28] MEDS: VANCOMYCIN 1GM+NS 250ML 250 ML IV SCH (17:00)
[2019-10-28] MEDS: TRAMADOL HCL 50 MG TABLET PO PRN (17:16)
--- NOTE | 2019-10-28 17:24 | NUR ---
MD CALL DR. KARIMI CALLED TO FOLLOW UP ON STATUS OF THE PATIENT AND WHAT RECOMMENDATIONS DID DR. JEFF NOTE. READ NOTE FROM DR. JEFF TO DR. KARIMI. PER DR. KARIMI, NOTIFY HIM IF PATIENT WILL BE NEEDING SURGERY TO RLE.
[2019-10-28 19:00] VITALS: BP 132/68; PULSE 94; RESP 19; TEMP 98.5
[2019-10-28] MEDS: ATORVASTATIN CALCIUM 40 MG TABLET PO SCH (19:34)
[2019-10-28 23:47] VITALS: BP 149/60; PULSE 93; RESP 18; TEMP 98.6
[2019-10-29] MEDS: SODIUM CHLORIDE 0.9% 1000ML 1,000 ML IV SCH ×2 (01:03→13:05)
[2019-10-29] MEDS: HYDROMORPHONE HCL 0.5 MG/0.5 ML ML IVP PRN (01:03)
[2019-10-29] MEDS: CEFEPIME HCL 1 GM VIAL IVP SCH ×2 (02:19→14:36)
[2019-10-29 04:00] VITALS: BP 152/73; PULSE 88; RESP 18; TEMP 98.7
[2019-10-29] MEDS: GABAPENTIN 300 MG CAPSULE PO SCH ×3 (05:26→22:03)
[2019-10-29] MEDS: METRONIDAZOLE 500 MG TABLET PO SCH ×3 (05:29→22:02)
[2019-10-29] MEDS: INSULIN HUMULIN R 100 UNIT/ML 3ML SQ SCH ×4 (05:45→22:18)
[2019-10-29] MEDS: PANTOPRAZOLE SODIUM 40 MG TABLET.DR PO SCH (08:36)
[2019-10-29] MEDS: METOPROLOL SUCCINATE 50 MG TAB.SR.24H PO SCH (08:36)
[2019-10-29] MEDS: MONTELUKAST SODIUM 10 MG TAB PO SCH (08:36)
[2019-10-29] MEDS: ISOSORBIDE DINITRATE 10 MG TABLET PO SCH ×2 (08:36→22:02)
[2019-10-29] MEDS: CILOSTAZOL 100 MG TAB PO SCH ×2 (08:36→22:02)
[2019-10-29] MEDS: ASPIRIN 81MG TAB.CHEW PO SCH (08:36)
[2019-10-29] MEDS: TAMSULOSIN HCL 0.4 MG CAP.ER.24H PO SCH (08:37)
[2019-10-29 08:56] VITALS: BP 151/65; PULSE 88; RESP 18; TEMP 98.5
[2019-10-29] MEDS: TRAMADOL HCL 50 MG TABLET PO PRN ×2 (10:30→22:08)
[2019-10-29] MEDS: HEPARIN SODIUM 5000UNIT/ML 1ML VIAL SQ SCH (10:37)
--- NOTE | 2019-10-29 10:56 | NUR ---
MD PURI SPOKE TO DR. JEFF REGARDING PATIENT'S CASE. DR. CHEN STATED THERE IS NOTHING MORE HE CAN DO FOR THE PATIENT. PATIENT IS CURRENTLY ON ANTIPLATELET AND STATIN THERAPY. WILL NOTIFY DR. KARIMI AND PRIMARY PHYSICIAN.
[2019-10-29 12:00] VITALS: BP 141/68; PULSE 91; RESP 18; TEMP 98.4
--- NOTE | 2019-10-29 14:59 | NUR ---
PODIATRY CONSULT CALLED DR. COVARRUBIAS REGARDING CONSULT FOR RIGHT TMA GANGRENE. MESSAGE LEFT NO ANSWER AT THIS TIME, PENDING CALL BACK.
--- NOTE | 2019-10-29 16:13 | NUR ---
CM NOTE/PENDING RX FOR WC REQUESTING LIGHT WEIGHT WHEELCHAIR, RX LEFT FLAGGED IN CHART FOR MD SIGNATURE, PRIMARY NURSE MK BLAKE MADE AWARE.
--- NOTE | 2019-10-29 16:31 | NUR ---
CARDIOLOGY CONSULT PAGED DR. GOMEZ AT OFFICE, SPOKE TO MO. PATIENT INFORMATION GIVEN. PENDING CALL BACK.
[2019-10-29] MEDS ORDERED: COMPOUND IV REFRIGERATED 1 EACH IVSOLN MISC PRN (16:45)
[2019-10-29 16:46] VITALS: BP 148/75; PULSE 88; RESP 18; TEMP 98.3
--- NOTE | 2019-10-29 16:50 | NUR ---
DR. GOMEZ RETURNED CALL REGARDING CONSULT. DR. GOMEZ STATED WILL NOT BE ABLE TO SEE PATIENT DUE TO HE DOES NOT SEE PATIENTS FOR PAD. DR. MAN IS NOT BARBER TODAY. CONTACT DR. MAN IN AM FOR FOLLOW UP WITH PATIENT'S CONDITION.
[2019-10-29] MEDS: VANCOMYCIN 1.5 GM in SODIUM CHLORIDE 0.9% 250 ML IV SCH (16:53)
[2019-10-29] MEDS ORDERED: SODIUM CHLORIDE 0.9% IV SCH (17:00)
[2019-10-29] MEDS ORDERED: VANCOMYCIN IV SCH (17:00)
--- NOTE | 2019-10-29 17:10 | NUR ---
PAGE PAGED DR. JEFF REGARDING NEW FINDINGS OF VENOUS US. FLUID COLLECTED NOTED TO RIGHT INGUINAL AREA. NO ANSWER AT THIS TIME. PENDING CALL BACK.
[2019-10-29 19:48] VITALS: BP 161/77; PULSE 92; RESP 17; TEMP 98.6
[2019-10-29] MEDS: ATORVASTATIN CALCIUM 40 MG TABLET PO SCH (22:02)
[2019-10-29] MEDS: LACTULOSE 20 GM/30 ML UDCUP PO PRN (22:08)
[2019-10-29 23:18] VITALS: BP 146/64; PULSE 96; RESP 17; TEMP 98.9
[2019-10-30] MEDS: CEFEPIME HCL 1 GM VIAL IVP SCH ×2 (03:22→15:31)
[2019-10-30] MEDS: SODIUM CHLORIDE 0.9% 1000ML 1,000 ML IV SCH ×2 (03:22→15:32)
[2019-10-30] MEDS: TRAMADOL HCL 50 MG TABLET PO PRN ×3 (03:24→15:32)
[2019-10-30 03:50] VITALS: BP 160/80; PULSE 94; RESP 18; TEMP 98.1
[2019-10-30] MEDS: INSULIN HUMULIN R 100 UNIT/ML 3ML SQ SCH ×4 (06:21→20:56)
[2019-10-30] MEDS: GABAPENTIN 300 MG CAPSULE PO SCH ×3 (06:22→23:17)
[2019-10-30] MEDS: METRONIDAZOLE 500 MG TABLET PO SCH ×3 (06:23→23:16)
[2019-10-30 08:00] VITALS: BP 130/66; PULSE 83; RESP 17; TEMP 98.3
[2019-10-30] MEDS: MONTELUKAST SODIUM 10 MG TAB PO SCH (09:02)
[2019-10-30] MEDS: ISOSORBIDE DINITRATE 10 MG TABLET PO SCH ×2 (09:03→19:37)
[2019-10-30] MEDS: PANTOPRAZOLE SODIUM 40 MG TABLET.DR PO SCH (09:03)
[2019-10-30] MEDS: DOCUSATE SODIUM 100 MG CAP PO PRN (09:03)
[2019-10-30] MEDS: METOPROLOL SUCCINATE 50 MG TAB.SR.24H PO SCH (09:03)
[2019-10-30] MEDS: ASPIRIN 81MG TAB.CHEW PO SCH (09:03)
[2019-10-30] MEDS: TAMSULOSIN HCL 0.4 MG CAP.ER.24H PO SCH (09:03)
[2019-10-30] MEDS: CILOSTAZOL 100 MG TAB PO SCH ×2 (09:03→19:37)
[2019-10-30] MEDS: MAGNESIUM 2GM PREMIX 50ML 50 ML IV PRN (09:11)
[2019-10-30] MEDS: HEPARIN SODIUM 5000UNIT/ML 1ML VIAL SQ SCH (09:14)
--- NOTE | 2019-10-30 11:03 | NUR ---
NOTIFIED DR. LI REGARDING CONSULT READ ARTERIAL REPORT TO HIM VIA TELEPHONE. DR. LI REPORTS, "IT'S JUST A HEMATOMA. THERE IS NO SIGNS OF INFECTION. IT'S NOT AN ABSCESS. IT WILL RESOLVE WITH TIME." WILL CONTINUE TO MONITOR.
[2019-10-30 11:15] VITALS: BP 130/65; PULSE 93; RESP 18; TEMP 98.6
[2019-10-30 16:00] VITALS: BP 141/61; PULSE 87; RESP 18; TEMP 98.8
[2019-10-30] MEDS: VANCOMYCIN 1.5 GM in SODIUM CHLORIDE 0.9% 250 ML IV SCH (17:07)
--- NOTE | 2019-10-30 18:00 | NUR ---
DR. MAN IN TO SEE PATIENT. HE SPOKE WITH PATIENT AND HIS REGARDING PATIENT'S CONDITION IN GREAT DETAIL WITH OPTIONS, RISKS, COMPLICATIONS AND RECOMMENDATIONS. PT AND VERBALIZED UNDERSTANDING. WILL CONTINUE TO FOLLOW.
[2019-10-30] MEDS: ATORVASTATIN CALCIUM 40 MG TABLET PO SCH (19:37)
[2019-10-30] MEDS: HYDROMORPHONE HCL 0.5 MG/0.5 ML ML IVP PRN (19:38)
[2019-10-30 20:00] VITALS: BP 143/71; PULSE 93; RESP 17; TEMP 98.4
[2019-10-31] VITALS: BP 148/65; PULSE 90; RESP 17; TEMP 98.6
[2019-10-31] MEDS: HYDROMORPHONE HCL 2 MG/ML VIAL IVP PRN ×7 (00:09→20:39)
[2019-10-31] MEDS: CEFEPIME HCL 1 GM VIAL IVP SCH ×2 (03:11→15:39)
[2019-10-31] MEDS: SODIUM CHLORIDE 0.9% 1000ML 1,000 ML IV SCH ×2 (03:16→16:07)
[2019-10-31 04:00] VITALS: BP 137/64; PULSE 94; RESP 18; TEMP 98.1
[2019-10-31] MEDS: METRONIDAZOLE 500 MG TABLET PO SCH ×3 (05:45→22:12)
[2019-10-31] MEDS: GABAPENTIN 300 MG CAPSULE PO SCH ×3 (05:45→22:12)
[2019-10-31] MEDS: INSULIN HUMULIN R 100 UNIT/ML 3ML SQ SCH ×4 (05:46→21:23)
[2019-10-31] MEDS: MAGNESIUM 2GM PREMIX 50ML 50 ML IV PRN (06:57)
[2019-10-31 07:02] VITALS: BP 146/72; PULSE 94; RESP 18; TEMP 98.7
[2019-10-31] MEDS: PANTOPRAZOLE SODIUM 40 MG TABLET.DR PO SCH (10:46)
[2019-10-31] MEDS: CILOSTAZOL 100 MG TAB PO SCH ×2 (10:47→20:38)
[2019-10-31] MEDS: ASPIRIN 81MG TAB.CHEW PO SCH (10:47)
[2019-10-31] MEDS: MONTELUKAST SODIUM 10 MG TAB PO SCH (10:47)
[2019-10-31] MEDS: TAMSULOSIN HCL 0.4 MG CAP.ER.24H PO SCH (10:47)
[2019-10-31] MEDS: METOPROLOL SUCCINATE 50 MG TAB.SR.24H PO SCH (10:47)
[2019-10-31] MEDS: ISOSORBIDE DINITRATE 10 MG TABLET PO SCH ×2 (10:48→20:38)
[2019-10-31] MEDS: HEPARIN SODIUM 5000UNIT/ML 1ML VIAL SQ SCH (10:54)
[2019-10-31 11:10] VITALS: BP 120/63; PULSE 90; RESP 18; TEMP 99.2
[2019-10-31 16:00] VITALS: BP 131/61; PULSE 91; RESP 18; TEMP 98.6
[2019-10-31] MEDS: VANCOMYCIN 1.5 GM in SODIUM CHLORIDE 0.9% 250 ML IV SCH (16:06)
[2019-10-31 19:25] VITALS: BP 156/78; PULSE 95; RESP 18; TEMP 98.7
[2019-10-31] MEDS: ATORVASTATIN CALCIUM 40 MG TABLET PO SCH (20:38)
[2019-11-01] VITALS (26 sets, daily range): BP systolic 103–169; BP diastolic 47–84; PULSE 88–109; RESP 15–20; TEMP 97.6–100.5
[2019-11-01] MEDS: CEFEPIME HCL 1 GM VIAL IVP SCH ×2 (02:57→15:35)
[2019-11-01] MEDS: GABAPENTIN 300 MG CAPSULE PO SCH ×3 (02:58→21:16)
[2019-11-01] MEDS: METRONIDAZOLE 500 MG TABLET PO SCH ×3 (02:58→22:31)
[2019-11-01] MEDS: INSULIN HUMULIN R 100 UNIT/ML 3ML SQ SCH ×4 (05:54→21:28)
[2019-11-01] MEDS: CILOSTAZOL 100 MG TAB PO SCH ×2 (09:00→21:16)
[2019-11-01] MEDS: HEPARIN SODIUM 5000UNIT/ML 1ML VIAL SQ SCH (09:00)
[2019-11-01] MEDS: TAMSULOSIN HCL 0.4 MG CAP.ER.24H PO SCH (09:00)
[2019-11-01] MEDS: ASPIRIN 81MG TAB.CHEW PO SCH (09:00)
[2019-11-01] MEDS: PANTOPRAZOLE SODIUM 40 MG TABLET.DR PO SCH (10:14)
[2019-11-01] MEDS: ISOSORBIDE DINITRATE 10 MG TABLET PO SCH ×2 (10:14→21:17)
[2019-11-01] MEDS: MONTELUKAST SODIUM 10 MG TAB PO SCH (10:14)
[2019-11-01] MEDS: METOPROLOL SUCCINATE 50 MG TAB.SR.24H PO SCH (10:14)
[2019-11-01] MEDS: SODIUM CHLORIDE 0.9% 1000ML 1,000 ML IV SCH ×3 (10:30→19:10)
[2019-11-01] MEDS: TRAMADOL HCL 50 MG TABLET PO PRN (11:05)
[2019-11-01] MEDS: VANCOMYCIN 1.5 GM in SODIUM CHLORIDE 0.9% 250 ML IV SCH ×2 (16:55→17:00)
[2019-11-01] MEDS ORDERED: KETAMINE 50MG/ML SYRINGE 50 MG/ML DISP.SYRIN IV ONE (17:19)
[2019-11-01] MEDS ORDERED: LIDOCAINE PF 2% 5ML ABBOJECT ONE (17:19)
[2019-11-01] MEDS ORDERED: SUCCINYLCHOLINE 200MG/10ML SYR ONE (17:19)
[2019-11-01] MEDS ORDERED: ROPIVACAINE 0.5% 5MG/ML 30ML IJ ONE (17:19)
[2019-11-01] MEDS ORDERED: PROPOFOL 10 MG/ML 20ML VIAL IV ONE (17:20)
[2019-11-01] MEDS ORDERED: ROCURONIUM 10MG/1ML SYR 10 MG/ML ML ONE (17:20)
[2019-11-01] MEDS ORDERED: NEOSTIGMINE 5MG/5ML SYR IV ONE (18:20)
[2019-11-01] MEDS ORDERED: GLYCOPYRROLATE 1 MG/5 ML SYRINGE ONE (18:20)
[2019-11-01] MEDS ORDERED: ONDANSETRON HCL 4 MG/2 ML VIAL ONE (18:24)
[2019-11-01] MEDS: ACETAMINOPHEN EXTRA STRENGTH 500 MG TABLET PO SCH ×2 (18:30→22:31)
--- NOTE | 2019-11-01 20:00 | NUR ---
post op note received patient from pacu via bed, patient awake, alert, ox3,no sob, no c/o pain at this time, dressing fozia wrap to r bka d/i with hemovac compressed no output at this time, ivf infusing well to right forearm, patients at bedside, teach plan of care and expected outcome, reinforce is a previously done, both verbalize understanding via teach back
[2019-11-01] MEDS: HYDROCODONE/ACETAMINOPHEN 5/325 MG TAB PO PRN (21:16)
[2019-11-01] MEDS: ATORVASTATIN CALCIUM 40 MG TABLET PO SCH (21:17)
[2019-11-01] MEDS: HYDROMORPHONE HCL 2 MG/ML VIAL IVP PRN (22:25)
[2019-11-01] MEDS: MAGNESIUM 2GM PREMIX 50ML 50 ML IV PRN (22:26)
[2019-11-02] MEDS: CEFEPIME HCL 1 GM VIAL IVP SCH ×2 (03:50→16:08)
[2019-11-02] MEDS: HYDROCODONE/ACETAMINOPHEN 5/325 MG TAB PO PRN ×2 (03:54→08:54)
[2019-11-02] MEDS: SODIUM CHLORIDE 0.9% 1000ML 1,000 ML IV SCH ×2 (03:57→14:29)
[2019-11-02 04:22] VITALS: BP 159/83; PULSE 90; RESP 20; TEMP 98.2
[2019-11-02] MEDS: INSULIN HUMULIN R 100 UNIT/ML 3ML SQ SCH ×4 (06:06→20:19)
[2019-11-02] MEDS: GABAPENTIN 300 MG CAPSULE PO SCH ×3 (06:09→23:05)
[2019-11-02] MEDS: METRONIDAZOLE 500 MG TABLET PO SCH ×3 (06:09→23:05)
[2019-11-02] MEDS: HYDROMORPHONE HCL 2 MG/ML VIAL IVP PRN ×2 (06:16→12:51)
[2019-11-02] MEDS: METOPROLOL SUCCINATE 50 MG TAB.SR.24H PO SCH (08:35)
[2019-11-02] MEDS: ISOSORBIDE DINITRATE 10 MG TABLET PO SCH ×2 (08:35→20:26)
[2019-11-02] MEDS: CILOSTAZOL 100 MG TAB PO SCH ×2 (08:35→20:26)
[2019-11-02] MEDS: MONTELUKAST SODIUM 10 MG TAB PO SCH (08:35)
[2019-11-02] MEDS: ASPIRIN 81MG TAB.CHEW PO SCH (08:36)
[2019-11-02] MEDS: TAMSULOSIN HCL 0.4 MG CAP.ER.24H PO SCH (08:36)
[2019-11-02] MEDS: PANTOPRAZOLE SODIUM 40 MG TABLET.DR PO SCH (08:36)
[2019-11-02] MEDS: HEPARIN SODIUM 5000UNIT/ML 1ML VIAL SQ SCH (08:44)
[2019-11-02] MEDS: DOCUSATE SODIUM 100 MG CAP PO PRN (08:54)
[2019-11-02] MEDS: LACTULOSE 20 GM/30 ML UDCUP PO PRN (08:55)
[2019-11-02 09:02] VITALS: BP 137/68; PULSE 84; RESP 19; TEMP 98.9
[2019-11-02] MEDS: ACETAMINOPHEN EXTRA STRENGTH 500 MG TABLET PO SCH ×2 (10:58→17:30)
[2019-11-02 11:43] VITALS: BP 97/53; PULSE 106; RESP 17; TEMP 98.3
--- NOTE | 2019-11-02 16:19 | NUR ---
I SPOKE TO SAMMI FROM CASE MANAGEMENT OFFICE AND INFORMED OF ORDER FOR CM FOR HOME HEALTH AND DME; SHE STATED UNDERSTANDING BUT STATED DUE TO IT BEING A MONDAY AND THE PT'S INSURANCE IS CLOSED AND NOTHING CAN BE DONE TILL MONDAY; I HAVE INFORMED PT'S OF THIS AND SHE STATED UNDERSTANDING.
[2019-11-02 16:55] VITALS: BP 162/72; PULSE 61; RESP 18; TEMP 98.7
[2019-11-02] MEDS: VANCOMYCIN 1.5 GM in SODIUM CHLORIDE 0.9% 250 ML IV SCH (17:17)
[2019-11-02 19:28] VITALS: BP 135/69; PULSE 89; RESP 20; TEMP 98.4
[2019-11-02] MEDS: ATORVASTATIN CALCIUM 40 MG TABLET PO SCH (20:26)
[2019-11-03] VITALS (7 sets, daily range): BP systolic 104–171; BP diastolic 50–78; PULSE 86–102; RESP 18–20; TEMP 97.6–99.4
[2019-11-03] MEDS: HYDROCODONE/ACETAMINOPHEN 5/325 MG TAB PO PRN ×5 (00:43→20:17)
[2019-11-03] MEDS: ACETAMINOPHEN EXTRA STRENGTH 500 MG TABLET PO SCH ×3 (02:08→18:21)
[2019-11-03] MEDS: CEFEPIME HCL 1 GM VIAL IVP SCH ×2 (03:42→15:14)
[2019-11-03] MEDS: GABAPENTIN 300 MG CAPSULE PO SCH ×3 (05:19→20:14)
[2019-11-03] MEDS: METRONIDAZOLE 500 MG TABLET PO SCH ×2 (05:20→15:14)
[2019-11-03] MEDS: INSULIN HUMULIN R 100 UNIT/ML 3ML SQ SCH ×4 (06:12→20:24)
[2019-11-03] MEDS: METOPROLOL SUCCINATE 50 MG TAB.SR.24H PO SCH (08:51)
[2019-11-03] MEDS: ISOSORBIDE DINITRATE 10 MG TABLET PO SCH ×2 (08:52→20:14)
[2019-11-03] MEDS: MONTELUKAST SODIUM 10 MG TAB PO SCH (08:52)
[2019-11-03] MEDS: TAMSULOSIN HCL 0.4 MG CAP.ER.24H PO SCH (08:53)
[2019-11-03] MEDS: ASPIRIN 81MG TAB.CHEW PO SCH (08:53)
[2019-11-03] MEDS: PANTOPRAZOLE SODIUM 40 MG TABLET.DR PO SCH (08:53)
[2019-11-03] MEDS: CILOSTAZOL 100 MG TAB PO SCH ×2 (08:53→20:13)
[2019-11-03] MEDS: HEPARIN SODIUM 5000UNIT/ML 1ML VIAL SQ SCH (09:01)
[2019-11-03] MEDS: LACTULOSE 20 GM/30 ML UDCUP PO PRN ×2 (09:02→16:28)
[2019-11-03] MEDS: VANCOMYCIN 1.5 GM in SODIUM CHLORIDE 0.9% 250 ML IV SCH (16:28)
--- NOTE | 2019-11-03 17:00 | NUR ---
STUMP DRESSING CHANGED TO RIGHT BKA; PT HAS A WELL APPROX. INC. LINE WITH CLOVER IN PLACE, NO FRESH DRAINAGE, SLIGHT BRUISING ALONG INC. LINE, NO REDNESS OR DRAINAGE, PINK COLOR TO SURROUNDING TISSUE; PT ALSO HAS A SEPARATE INC. LINE WITH CLOVER TO IT CLOSER TO KNEE FROM PRIOR PROCEDURE THAT IS ALSO NORMAL IN APPEARANCE; I HAVE ALSO REMOVED THE PT'S HV DRAIN; I CLEANSED ALL INC. LINES WITH BETADINE AND THEN APPLIED GAUZE, KERLIX AND SARBJIT WRAP IN STUMP DRESSING FASHION. PT HOOD. PROC. WELL, HE WAS PREMEDICATED WITH NORCO PRIOR TO PROC. OBSERVED PROCEDURE AND TOOK PICTURES OF THE STUMP.
[2019-11-03] MEDS: ATORVASTATIN CALCIUM 40 MG TABLET PO SCH (20:14)
[2019-11-04] MEDS: METRONIDAZOLE 500 MG TABLET PO SCH ×3 (01:05→17:02)
[2019-11-04] MEDS: HYDROCODONE/ACETAMINOPHEN 5/325 MG TAB PO PRN ×4 (01:08→17:02)
[2019-11-04] MEDS: ACETAMINOPHEN EXTRA STRENGTH 500 MG TABLET PO SCH ×2 (01:08→10:30)
[2019-11-04] MEDS: CEFEPIME HCL 1 GM VIAL IVP SCH ×2 (03:47→17:02)
[2019-11-04 04:00] VITALS: BP 141/62; PULSE 91; RESP 20; TEMP 98.1
[2019-11-04] MEDS: INSULIN HUMULIN R 100 UNIT/ML 3ML SQ SCH ×3 (06:50→17:14)
[2019-11-04] MEDS: GABAPENTIN 300 MG CAPSULE PO SCH ×2 (06:52→15:27)
[2019-11-04 08:10] VITALS: BP 156/73; PULSE 99; RESP 20; TEMP 98.7
[2019-11-04] MEDS: TAMSULOSIN HCL 0.4 MG CAP.ER.24H PO SCH (08:37)
[2019-11-04] MEDS: METOPROLOL SUCCINATE 50 MG TAB.SR.24H PO SCH (08:37)
[2019-11-04] MEDS: CILOSTAZOL 100 MG TAB PO SCH (08:38)
[2019-11-04] MEDS: ISOSORBIDE DINITRATE 10 MG TABLET PO SCH (08:38)
[2019-11-04] MEDS: MONTELUKAST SODIUM 10 MG TAB PO SCH (08:38)
[2019-11-04] MEDS: ASPIRIN 81MG TAB.CHEW PO SCH (08:39)
[2019-11-04] MEDS: PANTOPRAZOLE SODIUM 40 MG TABLET.DR PO SCH (08:39)
[2019-11-04] MEDS: HEPARIN SODIUM 5000UNIT/ML 1ML VIAL SQ SCH (08:56)
[2019-11-04 11:23] VITALS: BP 124/49; PULSE 111; RESP 20; TEMP 97.9
--- NOTE | 2019-11-04 14:56 | NUR ---
CM Note: HCD reacceptance Called HCD, pt has reacceptance, received updated clinicals today. Primary nurse aware. Pt safe to dc once md clear. CM to cont to follow up.
[2019-11-04 16:24] VITALS: BP 146/63; PULSE 87; RESP 20; TEMP 98.7
--- NOTE | 2019-11-04 18:12 | NUR ---
DISCHARGE INSTRUCTIONS GIVEN AT THIS TIME TO PATIENT AND . BOTH VERBALIZED UNDERSTANDING. RX CALLED IN TO [facility]. PATIENT STABLE AT THIS TIME. DRESSING TO STUMP D/I.
== END 2019-11-04 19:15 | disposition home health service (06) | DRG 240 ==
LOC: EDH 11:08 → EDHIP 14:19 → 3DH 21:55
PROVIDERS: ADMIT Internal Medicine Critical Care Medicine; ATTEND Internal Medicine Critical Care Medicine
PROC: 3E0T3BZ Introduction of Anesthetic Agent into Peripheral Nerves and Plexi, Percutaneous Approach (ICD-10-PCS; 2019-11-01)
PROC: 0Y6H0Z2 Detachment at Right Lower Leg, Mid, Open Approach (ICD-10-PCS; principal; 2019-11-01 17:21)
DX: T82.898A Other specified complication of vascular prosthetic devices, implants and grafts, initial encounter (principal); E11.52 Type 2 diabetes mellitus with diabetic peripheral angiopathy with gangrene; N17.9 Acute kidney failure, unspecified; E87.1 Hypo-osmolality and hyponatremia; I96 Gangrene, not elsewhere classified; I70.92 Chronic total occlusion of artery of the extremities; I50.30 Unspecified diastolic (congestive) heart failure; I13.0 Hypertensive heart and chronic kidney disease with heart failure and stage 1 through stage 4 chronic kidney disease, or unspecified chronic kidney disease; N18.9 Chronic kidney disease, unspecified; E11.22 Type 2 diabetes mellitus with diabetic chronic kidney disease; I12.9 Hypertensive chronic kidney disease with stage 1 through stage 4 chronic kidney disease, or unspecified chronic kidney disease; E11.40 Type 2 diabetes mellitus with diabetic neuropathy, unspecified; E87.5 Hyperkalemia; E78.5 Hyperlipidemia, unspecified; I25.10 Atherosclerotic heart disease of native coronary artery without angina pectoris; D64.9 Anemia, unspecified; K21.9 Gastro-esophageal reflux disease without esophagitis; Y83.2 Surgical operation with anastomosis, bypass or graft as the cause of abnormal reaction of the patient, or of later complication, without mention of misadventure at the time of the procedure; Y92.89 Other specified places as the place of occurrence of the external cause; Z87.891 Personal history of nicotine dependence; Z79.02 Long term (current) use of antithrombotics/antiplatelets; Z79.82 Long term (current) use of aspirin; Z79.84 Long term (current) use of oral hypoglycemic drugs; Z79.899 Other long term (current) drug therapy

== ENCOUNTER 2020-03-17 20:38 | Emergency (ER) | payer OTHER, MEDICARE ==
[~2020-03-17 20:38] MED LIST changes: +ASPI-556 PO; -CIPR500S5 PO; -CLIN150C10 PO; +CLOP75TA14 PO; +DOCU100C33 PO; +ISOS30TA11 PO; +MELO-106 PO; +METO-391 PO; +ONDA-104 PO; -PANT40TA54 PO; +TRAM50TA4 PO
[2020-03-17] MEDS ORDERED: SODIUM CHLORIDE 0.9% 1000ML 1,000 ML IV ONE (20:39)
[2020-03-17] MEDS ORDERED: ONDANSETRON HCL 4 MG/2 ML VIAL IVP ONE (20:39)
[2020-03-17] MEDS ORDERED: METOCLOPRAMIDE 10 MG/2 ML VIAL ONE (21:02)
[2020-03-17 21:06] LABS: BASOPHILS % (AUTO) 0.3 % (0.0-5.0); EOSINOPHILS % (AUTO) 0.6 % (0.0-8.0); HEMATOCRIT 34.4 % (42-54); LYMPHOCYTES % (AUTO) 12.6 % (21.0-51.0); MEAN CORPUSCULAR HEMOGLOBIN 29.2 pg (27.0-33.0); MEAN CORPUSCULAR HGB CONC 34.6 g/dL (32.0-36.0); MEAN CORPUSCULAR VOLUME 84.5 fL (79-99); MONOCYTES % (AUTO) 4.3 % (3.0-13.0); NEUTROPHILS % (AUTO) 81.6 % (40.0-77.0); PLATELET COUNT (AUTO) 134 K/uL (130-400); RED BLOOD CELL COUNT(AUTO) 4.07 MIL/uL (4.50-6.20); RED CELL DISTRIBUTION WIDTH 14.3 % (11.0-15.5); WHITE BLOOD COUNT (AUTO) 6.2 K/uL (4.8-10.8)
[2020-03-17 21:21] LABS: CREATININE 1.3 mg/dL (0.5-1.5)
[2020-03-17] MEDS ORDERED: DiphenhydrAMINE HCL 50 MG/ML VIAL ONE (21:39)
== END 2020-03-17 23:33 | disposition home or self-care (01) ==
LOC: EDH 20:38
DX: R11.2 Nausea with vomiting, unspecified (principal); E11.9 Type 2 diabetes mellitus without complications; K21.9 Gastro-esophageal reflux disease without esophagitis; Z98.890 Other specified postprocedural states
CPT/HCPCS: 36415; 80048; 85025; 96361; 96374; 96375; 99284; J1200; J2405; J2765; J7030